=== PATIENT | male | born 2000 | race Caucasian/White ===

== ENCOUNTER 2022-08-21 06:05 | Inpatient (IN) ==
--- NOTE | 2022-08-21 06:37 | Emergency Department Note ---
Impression & Plan Suicidal ideation, Mood disorder ED Provider Note NAME: TYRONE MARION AGE: 22 SEX: M : 2000 ARRIVES VIA: Walk-In INFORMANT: Patient ED PROVIDER(S): Carlos Osorio DO CHIEF COMPLAINT: Suicidal ideations HPI: Patient is a 22-year-old male who presents to the ER who had suicidal ideations and a plan. He notes he is feeling very depressed and having suicidal thoughts. These thoughts have been present for over a year but getting worse recently. He admits to thinking about killing himself and planning to kill himself with a knife. He tried to cut his wrist to kill himself but was unsuccessful as it was not sharp enough. He denies any headache or change in vision. No chest pain or shortness of breath. No nausea, vomiting, or diarrhea. No cough or runny nose. No other exacerbating or remitting factors. His tetanus he believes is up-to-date. ROS: See above HPI for pertinent positives & negatives. A total of 10 systems reviewed and were otherwise negative. PAST MEDICAL HISTORY:See Below PAST SURGICAL HISTORY:See Below FAMILY HISTORY:See Below SOCIAL HISTORY:See Below HOME MEDICATIONS:See Below ALLERGIES:See Below VITALS:See Below PHYSICAL EXAMINATION: GENERAL: Sitting up in bed, alert, well appearing, well nourished, no distress, non-toxic EYE EXAM: normal conjunctiva. OROPHARYNX: no exudate, no erythema, lips, buccal mucosa, and tongue normal and mucous membranes are moist NECK: supple, no nuchal rigidity, no adenopathy, non-tender LUNGS: Clear to auscultation. Normal chest wall mechanics HEART: no murmurs, S1 normal and S2 normal ABDOMEN: abdomen soft, non-tender, normo-active bowel sounds, no masses, no rebound or guarding. UPPER EXTREMITIES: upper extremities are grossly normal. LOWER EXTREMITIES: No pitting edema. NEURO EXAM: Normal sensorium, cranial nerves II-XII grossly intact, normal speech, no gross weakness of arms, no gross weakness of legs. PSYCH: Admits to suicidal ideations with a plan and attempt to cut his wrist MEDICAL DECISION MAKING: Patient is a 22-year-old male who presents ER for suicidal ideations with a plan to kill himself by cutting his wrist. Blood work obtained showed no significant leukocytosis or anemia. BMP with mild hypokalemia. LFTs bilirubin was unremarkable. UA was clean. Tox was negative. Alcohol was negative. COVID- negative. Patient was seen evaluated admitted to [address] on a 201. Triage Nursing notes reviewed. Limited review of prior medical records performed Vital Signs: reviewed and remarkable for HTN Differential diagnosis: Mood disorder, infection, hypoglycemia, electrolyte abnormalities, cardiac sources, intracerebral event, toxicologic, trauma, neurologic, as well as other pathologies. ER treatment provided: See below Diagnostics interpreted by me: ECG: none Laboratory studies: As stated above and show below. Imaging studies: See below Consultation(s): none Procedures: none Critical Care: None Past Med/Surg History Social History Smoking Status: Never smoker Preferred Language: Italian Communication Ability: Effective Chorus Dancer Required: No Beliefs That Will Affect Care: None Feels Safe at Home: Yes Assistive Devices: None Results & Data (ED) Vital Signs Vital Signs - 24 hr 08/21/22 06:10 08/21/22 08:43 Temperature 36.5 C 36.9 C Temperature Source Temporal Artery Scan Oral Pulse Rate 87 Pulse Rate [Finger] 119 H Pulse Rhythm Regular Pulse Strength Normal Respiratory Rate 20 18 Respiratory Effort / Characteristics Non-Labored Spontaneous Non-Labored Respiratory Depth Normal Normal Blood Pressure 149/94 H Blood Pressure [Right Arm] 139/86 Blood Pressure Mean 112 Blood Pressure Mean [Right Arm] 103 Blood Pressure Position Sitting Pulse Oximetry 99 99 Sepsis Recent Fever Within 48 Hours No Sepsis New/Unexplained Change in Mental Status N/A Sepsis Action Taken by Nursing No Action Required Laboratory Data Result diagrams: 08/21/22 07:36 08/21/22 07:36 Lab Results 08/21/22 08/21/22 08/21/22 Range/Units 06:46 07:36 07:36 WBC 9.86 (4.8-10.8) K/ul RBC 5.09 (4.63-6.08) M/uL Hgb 15.5 (14.0-18.0) g/dl Hct 44.6 (40.1-51.0) % MCV 87.6 (80.0-100.0) fL MCH 30.5 (25.0-34.0) pg MCHC 34.8 (32.0-36.0) g/dL RDW Std Deviation 38.0 (36.4-46.3) fL RDW Coeff of Lcuas 11.8 (11.5-14.5) % Plt Count 277 (130-400) K/uL MPV 10.6 (9.4-12.4) fL Immature Gran % (Auto) 0.4 % Neut % (Auto) 85.8 % Lymph % (Auto) 10.2 % [place] % (Auto) 3.1 % Eos % (Auto) 0.1 % Baso % (Auto) 0.4 % Neut # (Auto) 8.45 H (1.4-6.5) K/uL Lymph # (Auto) 1.01 L (1.2-3.4) K/uL [place] # (Auto) 0.31 (0.24-0.82) K/uL Eos # (Auto) 0.01 (0-0.50) K/uL Baso # (Auto) 0.04 (0-0.2) K/uL Immature Gran # (Auto) 0.04 H (0.00-0.02) K/uL Sodium 137 (136-145) mmol/L Potassium 3.6 (3.5-5.1) mmol/L Chloride 100 (98-107) mmol/L Carbon Dioxide 26 (21-32) mmol/L Anion Gap 11 (3-11) BUN 19 (6-23) mg/dl Creatinine 0.87 (0.6-1.4) mg/dl Est Cr Clr Drug Dosing 147.4 ml/min Est GFR ( Amer) 143.0 ml/min Est GFR (Non-Af Amer) 123.4 ml/min BUN/Creatinine Ratio 21.8 H (10-20) Glucose 167 H (70-99(Fasting)) mg/dl Calcium 10.2 H (8.5-10.1) mg/dl Total Bilirubin 0.8 (0.2-1.0) mg/dl AST 18 (13-39) U/L ALT 16 (7-52) U/L Alkaline Phosphatase 88 (34-104) U/L Total Protein 8.3 (6.0-8.3) gm/dl Albumin 5.3 H (3.4-5.0) gm/dl Globulin 3.0 (2.5-4.0) gm/dl Albumin/Globulin Ratio 1.8 (0.9-2) TSH (0.300-4.500) uIu/ml Urine Color Urine Appearance (Clear) Urine pH (4.5-7.5) Ur Specific [place] (1.000-1.030) Urine Protein (Negative) Urine Glucose (UA) (Negative) Urine Ketones (Negative) Urine Blood (Negative) Urine Nitrite (Negative) Urine Bilirubin (Negative) Urine Urobilinogen (Negative) Ur Leukocyte Esterase (Negative) Salicylates (3.0-30) mg/dl Urine Opiates Screen (Neg) Ur Methadone, Qual (Neg) Acetaminophen (10-30) ug/ml Urine Barbiturates (Neg) Ur Phencyclidine (PCP) (Neg) U Amphetamin/Meth Scrn (Neg) MDMA (Ecstasy) Screen (Neg) U Benzodiazepines Scrn (Neg) Ur Cocaine Metabolite (Neg) U Marijuana (THC) Screen (Neg) Ethyl Alcohol mg/dL (<10.0) mg/dl SARS-CoV-2, RNA, NAAT NEGATIVE (NEGATIVE) 08/21/22 08/21/22 08/21/22 Range/Units 07:36 07:36 07:36 WBC (4.8-10.8) K/ul RBC (4.63-6.08) M/uL Hgb (14.0-18.0) g/dl Hct (40.1-51.0) % MCV (80.0-100.0) fL MCH (25.0-34.0) pg MCHC (32.0-36.0) g/dL RDW Std Deviation (36.4-46.3) fL RDW Coeff of Lucas (11.5-14.5) % Plt Count (130-400) K/uL MPV (9.4-12.4) fL Immature Gran % (Auto) % Neut % (Auto) % Lymph % (Auto) % [place] % (Auto) % Eos % (Auto) % Baso % (Auto) % Neut # (Auto) (1.4-6.5) K/uL Lymph # (Auto) (1.2-3.4) K/uL [place] # (Auto) (0.24-0.82) K/uL Eos # (Auto) (0-0.50) K/uL Baso # (Auto) (0-0.2) K/uL Immature Gran # (Auto) (0.00-0.02) K/uL Sodium (136-145) mmol/L Potassium (3.5-5.1) mmol/L Chloride (98-107) mmol/L Carbon Dioxide (21-32) mmol/L Anion Gap (3-11) BUN (6-23) mg/dl Creatinine (0.6-1.4) mg/dl Est Cr Clr Drug Dosing ml/min Est GFR ( Amer) ml/min Est GFR (Non-Af Amer) ml/min BUN/Creatinine Ratio (10-20) Glucose (70-99(Fasting)) mg/dl Calcium (8.5-10.1) mg/dl Total Bilirubin (0.2-1.0) mg/dl AST (13-39) U/L ALT (7-52) U/L Alkaline Phosphatase (34-104) U/L Total Protein (6.0-8.3) gm/dl Albumin (3.4-5.0) gm/dl Globulin (2.5-4.0) gm/dl Albumin/Globulin Ratio (0.9-2) TSH 2.067 (0.300-4.500) uIu/ml Urine Color Urine Appearance (Clear) Urine pH (4.5-7.5) Ur Specific [place] (1.000-1.030) Urine Protein (Negative) Urine Glucose (UA) (Negative) Urine Ketones (Negative) Urine Blood (Negative) Urine Nitrite (Negative) Urine Bilirubin (Negative) Urine Urobilinogen (Negative) Ur Leukocyte Esterase (Negative) Salicylates < 3.0 L (3.0-30) mg/dl Urine Opiates Screen (Neg) Ur Methadone, Qual (Neg) Acetaminophen < 3 L (10-30) ug/ml Urine Barbiturates (Neg) Ur Phencyclidine (PCP) (Neg) U Amphetamin/Meth Scrn (Neg) MDMA (Ecstasy) Screen (Neg) U Benzodiazepines Scrn (Neg) Ur Cocaine Metabolite (Neg) U Marijuana (THC) Screen (Neg) Ethyl Alcohol mg/dL < 10.0 (<10.0) mg/dl SARS-CoV-2, RNA, NAAT (NEGATIVE) 08/21/22 08/21/22 Range/Units 08:46 08:46 WBC (4.8-10.8) K/ul RBC (4.63-6.08) M/uL Hgb (14.0-18.0) g/dl Hct (40.1-51.0) % MCV (80.0-100.0) fL MCH (25.0-34.0) pg MCHC (32.0-36.0) g/dL RDW Std Deviation (36.4-46.3) fL RDW Coeff of Lucas (11.5-14.5) % Plt Count (130-400) K/uL MPV (9.4-12.4) fL Immature Gran % (Auto) % Neut % (Auto) % Lymph % (Auto) % [place] % (Auto) % Eos % (Auto) % Baso % (Auto) % Neut # (Auto) (1.4-6.5) K/uL Lymph # (Auto) (1.2-3.4) K/uL [place] # (Auto) (0.24-0.82) K/uL Eos # (Auto) (0-0.50) K/uL Baso # (Auto) (0-0.2) K/uL Immature Gran # (Auto) (0.00-0.02) K/uL Sodium (136-145) mmol/L Potassium (3.5-5.1) mmol/L Chloride (98-107) mmol/L Carbon Dioxide (21-32) mmol/L Anion Gap (3-11) BUN (6-23) mg/dl Creatinine (0.6-1.4) mg/dl Est Cr Clr Drug Dosing ml/min Est GFR ( Amer) ml/min Est GFR (Non-Af Amer) ml/min BUN/Creatinine Ratio (10-20) Glucose (70-99(Fasting)) mg/dl Calcium (8.5-10.1) mg/dl Total Bilirubin (0.2-1.0) mg/dl AST (13-39) U/L ALT (7-52) U/L Alkaline Phosphatase (34-104) U/L Total Protein (6.0-8.3) gm/dl Albumin (3.4-5.0) gm/dl Globulin (2.5-4.0) gm/dl Albumin/Globulin Ratio (0.9-2) TSH (0.300-4.500) uIu/ml Urine Color Yellow Urine Appearance Clear (Clear) Urine pH 5.5 (4.5-7.5) Ur Specific [place] 1.022 (1.000-1.030) Urine Protein Negative (Negative) Urine Glucose (UA) Trace H (Negative) Urine Ketones Trace H (Negative) Urine Blood Negative (Negative) Urine Nitrite Negative (Negative) Urine Bilirubin Negative (Negative) Urine Urobilinogen Negative (Negative) Ur Leukocyte Esterase Negative (Negative) Salicylates (3.0-30) mg/dl Urine Opiates Screen Neg (Neg) Ur Methadone, Qual Neg (Neg) Acetaminophen (10-30) ug/ml Urine Barbiturates Neg (Neg) Ur Phencyclidine (PCP) Neg (Neg) U Amphetamin/Meth Scrn Neg (Neg) MDMA (Ecstasy) Screen Neg (Neg) U Benzodiazepines Scrn Neg (Neg) Ur Cocaine Metabolite Neg (Neg) U Marijuana (THC) Screen Pos H (Neg) Ethyl Alcohol mg/dL (<10.0) mg/dl SARS-CoV-2, RNA, NAAT (NEGATIVE) Discharge Plan Visit Data Chief Complaint: Mental Health Evaluation Stated Complaint: MENTAL HEALTH EVAULATION ED Provider: Carlos Osorio Discharge Problem: Suicidal ideation, Mood disorder Patient Disposition: Admitted As Inpatient Discharge Instructions Interventions: ED Discharge Assessment Last Done: 08/21/22 11:15
[2022-08-21 08:08] LABS: Basophils # (auto) 0.04 K/uL (0-0.2); Basophils % (auto) 0.4 %; Eosinophils # (auto) 0.01 K/uL (0-0.50); Eosinophils % (auto) 0.1 %; Hematocrit (blood only) 44.6 % (40.1-51.0); Hemoglobin 15.5 g/dl (14.0-18.0); Immature Granulocytes # (auto) 0.04 K/uL (0.00-0.02); Immature Granulocytes % (auto) 0.4 %; Lymphocytes # (auto) 1.01 K/uL (1.2-3.4); Lymphocytes % (auto) 10.2 %; Mean Corpuscular Hemoglobin 30.5 pg (25.0-34.0); Mean Corpuscular Hgb Conc 34.8 g/dL (32.0-36.0); Mean Corpuscular Volume 87.6 fL (80.0-100.0); Mean Platelet Volume 10.6 fL (9.4-12.4); Monocytes # (auto) 0.31 K/uL (0.24-0.82); Monocytes % (auto) 3.1 %; Neutrophils # (auto) 8.45 K/uL (1.4-6.5); Neutrophils % (auto) 85.8 %; Platelet Count 277 K/uL (130-400); RDW Coefficient of Variation 11.8 % (11.5-14.5); Red Blood Count 5.09 M/uL (4.63-6.08); White Blood Count 9.86 K/ul (4.8-10.8)
[2022-08-21 08:26] LABS: Acetaminophen < 3 ug/ml (10-30); Salicylate < 3.0 mg/dl (3.0-30)
[2022-08-21 08:31] LABS: Albumin Globulin Ratio 1.8 (0.9-2); Albumin Level 5.3 gm/dl (3.4-5.0); BUN Creatinine Ratio 21.8 (10-20); Bilirubin,Total 0.8 mg/dl (0.2-1.0); Calcium 10.2 mg/dl (8.5-10.1); Creatinine Clr Calc Pharmacy 147.4 ml/min; Est GFR (Non-African American) 123.4 ml/min; Potassium 3.6 mmol/L (3.5-5.1); Total Protein 8.3 gm/dl (6.0-8.3)
[2022-08-21 09:08] LABS: Appearance Urine Clear (Clear); Bilirubin Urine Negative (Negative); Blood Urine Negative (Negative); Color Urine Yellow; Glucose Urine UA Trace (Negative); Ketones Urine Trace (Negative); Leukocyte Esterase Urine Negative (Negative); Nitrite Urine Negative (Negative); Protein Urine Negative (Negative); Specific Gravity Urine 1.022 (1.000-1.030); Urobilinogen Urine Negative (Negative); pH Urine 5.5 (4.5-7.5)
[2022-08-21 10:04] LABS: Amphetamines+Metham, Urine Neg (Neg); Barbiturates, Urine Neg (Neg); Benzodiazepine, Urine Neg (Neg); Cocaine, Urine Neg (Neg); MDMA (Ecstacy), Urine Neg (Neg); Methadone, Urine Neg (Neg); Opiate, Urine Neg (Neg); Phencyclidine, Urine Neg (Neg)
--- NOTE | 2022-08-21 14:43 | History & Physical ---
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 Diagnostically consistent with MDD with anxious distress and binge drinking though at this point unclear if he meets criteria for alcohol use disorder. The patient is deemed unstable and requires psychiatric hospitalization for diagnostic clarification, safety and stabilization, medication management and development of further coping skills. The patient's audit score suggests potentially problematic substance use. Brief intervention was offered and accepted. Intervention was greater than 5 minutes in length and included assessing readiness to quit, advice on how to reduce or abstain and to set a specific goal for this hospitalization. 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 The patient is in contemplative stage with regards to transtheoretical model of change and will to reduce his alcohol intake. The patient is advised to decrease consumption due to depressant effects and risk of interaction with prescription medications. The patient agreed to reduce his use and will be provided with recovery materials to continue to educate self on how to cope with their condition without using substances. Discussed medication treatment options in detail including SSRIs, trazodone. Discussed risks, benefits and alternatives. Patient would like to start and consented to sertraline for MDD and anxiety and trazodone for insomnia. Reviewed side effects including but not limited to: GI, VERDUGO, sexual side effects, and c ounseled on black box warning of potential for emergence of or increased SI and need to let staff know should this occur or should they feel unsafe. Also discussed importance of seeking emergency care following discharge if this side effect occurs in the future. (1) Major depressive disorder, single episode with anxious distress: (2) Suicide attempt by cutting of wrist: (3) Insomnia: Plan 08/21/22: The [facility] on q15 min checks (behavioral with suicide precautions) for safety. The patient will participate in group, recreational, and milieu therapies and will be offered additional individual and family sessions as clinically appropriate. -sertraline 25mg qd -trazodone 50mg qhs prn Inventory Assets Strengths: supportive relationships, willing to get treatment, resilient, driven/motivated, kind Needs: safety and stabilization, medication adjustment, additional coping skills, increased outpatient services Suicide Risk Level Suicide Risk Level: High-Moderate (q15 min suicide checks) Suicide Risk Level Comments: High-Moderate due to severe depression with suicide attempt prior to admission but feels safe in the hospital, able to safety contract and agrees to let nursing/staff know should they develop plan, intent or feel unable to remain safe. Risk Factors Assessment Male: Yes : Yes Do You Have Access To A Gun?: No Health Problems: No Mental Health Diagnoses: Yes Substance Use Disorders: Yes Previous Attempt: No Family History of Suicide: No Previous Psychiatric Hospitalization: No Hopelessness: Yes Protective Factors Assessment Employed: No Stable Relationships: Yes Supportive Family: Yes Psychiatric History Identifying Data TYRONE MARION is a 22-year-old man and [employer] student who currently lives in off- campus in a house with roommates, has no formal psychiatric history, and was ad mitted on 08/21/22 10:58 on a 201 voluntary commitment for depression and suicide attempt via cutting. Chief Complaint "It's been a lot of different things". 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 He states he's been depressed for awhile but did not want to burden others so he has been dealing with it on his own and felt like he should be able to manage on his own. Yesterday he decided to act on his thoughts of suicide and [place], ditched his cell phone so he wouldn't burden others/his location be traceable and then cut himself with a knife around 3 or 4pm but it was not sharp enough and the cuts were not bleeding very much. At this point he tried to think of other ways "I could quickly do it" and considered jumping from scaffolding on a construction site but changed his mind. He remained outside all night, [place]. He was very cold but also ambivalent about potentially dying in his sleep. This morning, "something told me not" in terms of attempting suicide and so he returned to his apartment around 6am and his sister and brother were there and brought him to the hospital. While he was in the [facility] yesterday he missed a large [employer] event which concerned his friends who alerted his sister who posted that he was missing on facebook which resulted in significant media exposure and resulted in police and comm unity search efforts yesterday. This adds to his current stress as he feels guilt and shame about this and wonders how others will view him after his attempt and disappearance. He endorses current depressive symptoms including anhedonia, tearfulness, self- guilt, hopelessness, helplessness, decreased energy slightly, decreased motivation-still going to classes but so much harder, decreased concentration, decreased sleep about 5 or 6 hours a night with difficulty falling asleep due to racing thoughts, decreased appetite. He endorse anxiety symptoms including excessive worry, fatigue, irritability, insomnia, decreased concentration, and no panic attacks. Further recent history reviewed and confirmed as documented in accountant manager note from 08/21/22: "Tyrone was brought into ED by his family for a mental health evaluation. Tyrone was reported missing by his family and was searched for throughout the night by police who found his phone in the middle of the road. Officer Mauro present to speak with patient. Tyrone stated he has been struggling in "stuff" for approx. 5 years. He stated he tried to "deal with it on my own" and stated he never told anyone about it. Tyrone stated he struggled with being alone and always felt he needed to be around people "to distract me." Tyrone had difficulty verbalizing how he was feeling when asked questions. Tyrone has cut on wrist that he stated was an attempt to harm himself. Tyrone stated what he used to cut was not sharp enough. Dr. Osorio asked patient if cut was to harm or kill himself. Tyrone replied "the later." Tyrone stated he does not want to talk about things in front of his family and he verbalized he would like to talk to them about it in his own time. Physician asked patient if he would be willing to stay in the hospital for help and he replied "I think I need to." Met with patient bedside to complete mental health evaluation. Patient presents sad, tearful at times and cooperative in answering all questions asked of him. Two nights ago, patient was up late and was "stuck in my head" about all going on and of the past. The next morning, patient left his apartment around 10am and walked to far [facility]. Along the way, patient threw his cell phone away as not to be bothered or tracked down by anyone. Patient walked around in the [place] for awhile and then attempted to cut his wrist in an attempt to end his life. Patient reports the knife was not sharp enough and was "not successful" in what he intended to do. Patient then began wandering around the [place] again, getting lost and then came upon a construction site. Patient then contemplated jumping off the scaffolding, but chose not to. Patient then thought it best to return to his apartment around 6am this morning. Patient then came to the ED for further evaluation and treatment. Patient began having vague/passive suicidal ideations, reporting over the past two weeks have worsened. Patient has always struggled with depression, but has "always pushed thought them." Although patient has a lot of support, he does not want to burden anyone else with his problems. Patient identifies stressors as his Dad dying when he was 15y/o, his Mom has Laura's Disease and is deteriorating, he is the middle person between his siblings of a disagreement and he was recently accused of academic integrity. Patient reports depressive symptoms as feelings of helpless/hopelessness, self-devaluation, guilt, loss of daily functioning, lack of motivation, anhedonia, poor concentration, decrease in ADL's, appetite and quality of sleep. Patient describes moderate anxiety most days with symptoms of sweating and restlessness." He is not currently prescribed any psychiatric medications. Psychiatric ROS notable for no current nor history of symptoms of imelda, psychosis, PTSD, OCD nor eating disorder. Past Psychiatric History Current Psychiatric Diagnosis: MDD Outpatient Services: none Previous Psych Admissions: n/a Do You Have Access To A Gun?: No History of Previous Suicide Attempt: No Past Medication Trials: none Past Head Trauma/Neuro History History of Concussion/Seizure: No Allergies Allergy/AdvReac Type Severity Reaction Status Date / Time cat dander Allergy Verified 08/21/22 15:05 grass pollen Allergy Verified 08/21/22 15:05 Family History Family History of: Alcoholism/Drug Abuse (father) and Other-List under Comment (Laura's disease) Alcohol History Hx of Alcohol Use Over the Past 12 Months: Yes AUDIT Total Score: 15 drinks on the weekends, typically drinks about 6 beers, usually 1-2 beers every hour, doesn't feel he drinks to excess. Denies any legal, academic, medical or social consequences from his use. Smoking Use Have You Smoked or Used Tobacco Products in the Last 30 Days: No Smoking Status: Never smoker Substance History Hx of Prescription Med Misuse Over the Past 12 Months: No Hx of Over the Counter Med Misuse Over the Past 12 Months: No Hx of Inhalent Misuse Over the Past 12 Months: No Hx of Organic Substance Use Over the Past 12 Months: Yes (MJ 3-5 times weekly) Hx of Illegal Substances/Street Drug Use Over Past 12 Months: No Problems as a Result of Past Substance Use: None Identified Marijuana in the evenings he likes that it relaxes him and decreases worries/thinking Personal History Living Arrangements: Home (has 4 roommates) Childhood: [place] up [place] [facility] near [place], [place]. His father of cancer when he was 15. His mother has Monetta's Disease. He has an older sister and older br other. Highest Grade Completed: Some College (current [employer] student) Employment Status: Student (senior in accounting ) Marital Status: Single Number Of Children: 0 Beliefs That Will Affect Care: None Current Legal Problems: No Hx Legal Problems: No Hx Traumatic Life Events: Yes Additional Comments: Has a job lined up for after graduation. Patient History Social History Smoking Status: Never smoker Preferred Language: Armenian Communication Ability: Effective Alcoholic Counselor Required: No Beliefs That Will Affect Care: None Feels Safe at Home: Yes Assistive Devices: None Review of Systems Review of Systems: All systems reviewed & are unremarkable except as noted in HPI & below (left wrist lacerations, splinter in left hand) Physical Exam Psychiatric: Orientation: alert and oriented x 3 Apperance: appropriately dressed and appropriately groomed Eye Contact: good eye contact Motor Behavior: no abnormal motor movements Speech: normal rate/rhythm/volume of speech Affect: + depressed affect and + anxious affect Mood: + depressed mood and + anxious mood Thought Process: goal directed thought process Thought Content: reality based without delusions Suicidal Thoughts: denies suicidal thoughts (but attempt prior to admission, last SI was last evening), denies suicidal plan and denies suicidal intent Homicidal Thoughts: denies homicidal thoughts Hallucinations: no auditory hallucinations and no visual hallucinations Cognition: recent memory grossly intact, remote memory grossly intact, attention grossly intact and language grossly intact Estimated Intelligence: consistent with education level Insight: + fair insight Judgement: + limited judgement Vital Signs (Past 24 Hours): Last Vital Signs Temp 36.9 C 08/21/22 08:43 Pulse 84 08/21/22 11:52 Resp 16 08/21/22 11:52 BP 135/80 08/21/22 11:52 Pulse Ox 99 08/21/22 08:43 O2 Del Method 08/21/22 11:15 Exam Statement: A physical exam was performed in the ED by Dr. Osorio for the purposes of medical clearance. I accept that physical as correct and adequate for the purposes of the inpatient physical exam. Results & Data ([facility]) Laboratory Results Laboratory Results - last 24 hr 08/21/22 08/21/22 08/21/22 06:46 07:36 07:36 WBC 9.86 RBC 5.09 Hgb 15.5 Hct 44.6 MCV 87.6 MCH 30.5 MCHC 34.8 RDW Std Deviation 38.0 RDW Coeff of Lucas 11.8 Plt Count 277 MPV 10.6 Immature Gran % (Auto) 0.4 Neut % (Auto) 85.8 Lymph % (Auto) 10.2 [place] % (Auto) 3.1 Eos % (Auto) 0.1 Baso % (Auto) 0.4 Neut # (Auto) 8.45 H Lymph # (Auto) 1.01 L [place] # (Auto) 0.31 Eos # (Auto) 0.01 Baso # (Auto) 0.04 Immature Gran # (Auto) 0.04 H Sodium 137 Potassium 3.6 Chloride 100 Carbon Dioxide 26 Anion Gap 11 BUN 19 Creatinine 0.87 Est Cr Clr Drug Dosing 147.4 Est GFR ( Amer) 143.0 Est GFR (Non-Af Amer) 123.4 BUN/Creatinine Ratio 21.8 H Glucose 167 H Calcium 10.2 H Total Bilirubin 0.8 AST 18 ALT 16 Alkaline Phosphatase 88 Total Protein 8.3 Albumin 5.3 H Globulin 3.0 Albumin/Globulin Ratio 1.8 TSH Urine Color Urine Appearance Urine pH Ur Specific [place] Urine Protein Urine Glucose (UA) Urine Ketones Urine Blood Urine Nitrite Urine Bilirubin Urine Urobilinogen Ur Leukocyte Esterase Salicylates Urine Opiates Screen Ur Methadone, Qual Acetaminophen Urine Barbiturates Ur Phencyclidine (PCP) U Amphetamin/Meth Scrn MDMA (Ecstasy) Screen U Benzodiazepines Scrn Ur Cocaine Metabolite U Marijuana (THC) Screen U Marijuana THC Carboxy Drug Screen Comment Ethyl Alcohol mg/dL SARS-CoV-2, RNA, NAAT NEGATIVE 08/21/22 08/21/22 08/21/22 07:36 07:36 07:36 WBC RBC Hgb Hct MCV MCH MCHC RDW Std Deviation RDW Coeff of Lucas Plt Count MPV Immature Gran % (Auto) Neut % (Auto) Lymph % (Auto) [place] % (Auto) Eos % (Auto) Baso % (Auto) Neut # (Auto) Lymph # (Auto) [place] # (Auto) Eos # (Auto) Baso # (Auto) Immature Gran # (Auto) Sodium Potassium Chloride Carbon Dioxide Anion Gap BUN Creatinine Est Cr Clr Drug Dosing Est GFR ( Amer) Est GFR (Non-Af Amer) BUN/Creatinine Ratio Glucose Calcium Total Bilirubin AST ALT Alkaline Phosphatase Total Protein Albumin Globulin Albumin/Globulin Ratio TSH 2.067 Urine Color Urine Appearance Urine pH Ur Specific [place] Urine Protein Urine Glucose (UA) Urine Ketones Urine Blood Urine Nitrite Urine Bilirubin Urine Urobilinogen Ur Leukocyte Esterase Salicylates < 3.0 L Urine Opiates Screen Ur Methadone, Qual Acetaminophen < 3 L Urine Barbiturates Ur Phencyclidine (PCP) U Amphetamin/Meth Scrn MDMA (Ecstasy) Screen U Benzodiazepines Scrn Ur Cocaine Metabolite U Marijuana (THC) Screen U Marijuana THC Carboxy Drug Screen Comment Ethyl Alcohol mg/dL < 10.0 SARS-CoV-2, RNA, NAAT 08/21/22 08/21/22 08/21/22 08:46 08:46 08:46 WBC RBC Hgb Hct MCV MCH MCHC RDW Std Deviation RDW Coeff of Lucas Plt Count MPV Immature Gran % (Auto) Neut % (Auto) Lymph % (Auto) [place] % (Auto) Eos % (Auto) Baso % (Auto) Neut # (Auto) Lymph # (Auto) [place] # (Auto) Eos # (Auto) Baso # (Auto) Immature Gran # (Auto) Sodium Potassium Chloride Carbon Dioxide Anion Gap BUN Creatinine Est Cr Clr Drug Dosing Est GFR ( Amer) Est GFR (Non-Af Amer) BUN/Creatinine Ratio Glucose Calcium Total Bilirubin AST ALT Alkaline Phosphatase Total Protein Albumin Globulin Albumin/Globulin Ratio TSH Urine Color Yellow Urine Appearance Clear Urine pH 5.5 Ur Specific [place] 1.022 Urine Protein Negative Urine Glucose (UA) Trace H Urine Ketones Trace H Urine Blood Negative Urine Nitrite Negative Urine Bilirubin Negative Urine Urobilinogen Negative Ur Leukocyte Esterase Negative Salicylates Urine Opiates Screen Neg Ur Methadone, Qual Neg Acetaminophen Urine Barbiturates Neg Ur Phencyclidine (PCP) Neg U Amphetamin/Meth Scrn Neg MDMA (Ecstasy) Screen Neg U Benzodiazepines Scrn Neg Ur Cocaine Metabolite Neg U Marijuana (THC) Screen Pos H U Marijuana THC Carboxy Pending Drug Screen Comment Pending Ethyl Alcohol mg/dL SARS-CoV-2, RNA, NAAT
[2022-08-21] MEDS ORDERED: traZODone HCL 50 MG TAB PO PRN (15:40)
[2022-08-22] MEDS ORDERED: ALUMINUM/MAGNESIUM SUSP 30 ML UDC PO PRN (08:11)
[2022-08-22] MEDS ORDERED: MAGNESIUM HYDROXIDE SUSP 30 ML UDC PO PRN (08:11)
[2022-08-22] MEDS ORDERED: SODIUM CHLORIDE 0.65% NA SOLN 45 ML (OCEAN) PRN (08:11)
[2022-08-22] MEDS ORDERED: hydrOXYzine HCl 25 MG TAB PO PRN ×2 (08:11)
[2022-08-22] MEDS ORDERED: ACETAMINOPHEN 325 MG TAB PO PRN (08:11)
[2022-08-22] MEDS ORDERED: BISMUTH SUBSALICYLATE LIQD 236 ML PO PRN (08:11)
[2022-08-22] MEDS: SERTRALINE HCL 50 MG TABLET PO SCH (08:47)
--- NOTE | 2022-08-22 08:53 | Psychiatric Progress Note ---
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 Diagnostically consistent with MDD with anxious distress and binge drinking though at this point unclear if he meets criteria for alcohol use disorder. The patient is deemed unstable and requires psychiatric hospitalization for diagnostic clarification, safety and stabilization, medication management and development of further coping skills. 08/22/22: Ongoing depression and anxiety following serious suicide attempt. Tolerating initiation of sertraline. (1) Major depressive disorder, single episode with anxious distress: (2) Suicide attempt by cutting of wrist: (3) Insomnia: Plan 08/22/22: Continue with sertraline 25mg qd and current tx plan. 08/21/22: The patient was admitted to the [facility] on q15 min checks (behavioral with suicide precautions) for safety. The patient will participate in group, recreational, and milieu therapies and will be offered additional individual and family sessions as clinically appropriate. -sertraline 25mg qd -trazodone 50mg qhs prn Inventory Assets Strengths: supportive relationships, willing to get treatment, resilient, driven/motivated, kind Needs: safety and stabilization, medication adjustment, additional coping skills, inc reased outpatient services Suicide Risk Level Suicide Risk Level: High-Moderate (q15 min suicide checks) Suicide Risk Level Comments: High-Moderate due to severe depression with suicide attempt prior to admission but feels safe in the hospital, able to safety contract and agrees to let nursing/staff know should they develop plan, intent or feel unable to remain safe. 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 Chief Complaint "I'm still trying to process everything". Review of Systems Sleep Information Total Hours of Sleep: 6.5 Meal Information Percent Meal Consumed - Lunch: 100 Percent Meal Consumed - Dinner: 100 Subjective Subjective Patient was seen & assessed and interval progress reviewed with treatment team nursing and social work. Was able to fall asleep last night and slept ok. Today remains depressed and anxious especially about how others will view him/think of him after publicity of his disappearance prior to coming to the hospital. His sister dropped off some snacks for him. Benadryl cream helped with irritation from cuts on his wrist. No side effects from first dose of sertraline. Physical Exam Psychiatric Orientation: alert and oriented x 3 Apperance: appropriately dressed and appropriately groomed Eye Contact: good eye contact Motor Behavior: no abnormal motor movements Speech: normal rate/rhythm/volume of speech Affect: + anxious affect; + mood not congruent with affect Mood: + depressed mood and + anxious mood Thought Process: goal directed thought process Thought Content: reality based without delusions Suicidal Thoughts: denies suicidal thoughts (but attempt prior to admission), denies suicidal plan and denies suicidal intent Homicidal Thoughts: denies homicidal thoughts Hallucinations: no auditory hallucinations and no visual hallucinations Cognition: recent memory grossly intact, remote memory grossly intact, attention grossly intact and language grossly intact Estimated Intelligence: consistent with education level Insight: + fair insight Judgement: + fair judgement Vital Signs (Past 24 Hours) Last Vital Signs Temp 36.6 C 08/22/22 06:19 Pulse 71 08/22/22 06:22 Resp 16 08/22/22 06:19 BP 114/71 08/22/22 06:22 Pulse Ox 99 08/21/22 08:43 O2 Del Method 08/21/22 11:15 Results & Data ([facility]) Laboratory Results Laboratory Results - last 24 hr 08/21/22 08/21/22 08/21/22 08:46 08:46 08:46 Urine Color Yellow Urine Appearance Clear Urine pH 5.5 Ur Specific [place] 1.022 Urine Protein Negative Urine Glucose (UA) Trace H Urine Ketones Trace H Urine Blood Negative Urine Nitrite Negative Urine Bilirubin Negative Urine Urobilinogen Negative Ur Leukocyte Esterase Negative Urine Opiates Screen Neg Ur Methadone, Qual Neg Urine Barbiturates Neg Ur Phencyclidine (PCP) Neg U Amphetamin/Meth Scrn Neg MDMA (Ecstasy) Screen Neg U Benzodiazepines Scrn Neg Ur Cocaine Metabolite Neg U Marijuana (THC) Screen Pos H U Marijuana THC Carboxy Pending Drug Screen Comment Pending Current Inpatient Medications Current Inpatient Medications: Current Inpatient Medications Acetaminophen (Acetaminophen 325 Mg Tab) 650 mg PO Q4H PRN PRN Reason: Headache or Minor Fever Stop: 09/21/22 08:10 Al Hydrox/Mg Hydrox/Simethicone (Aluminum/Magnesium Susp 30 Ml Udc) 30 ml PO Q4H PRN PRN Reason: GI Upset Stop: 09/21/22 08:10 Bismuth Subsalicylate (Bismuth Subsalicylate Liqd 236 Ml) 15 ml PO PRN PRN PRN Reason: Loose Stool Stop: 09/21/22 08:10 Hydroxyzine HCl (Hydroxyzine Hcl 25 Mg Tab) 50 mg PO HSZ PRN PRN Reason: Insomnia Stop: 09/21/22 08:10 Hydroxyzine HCl (Hydroxyzine Hcl 25 Mg Tab) 25 mg PO Q4H PRN PRN Reason: Anxiety Stop: 09/21/22 08:10 Magnesium Hydroxide (Magnesium Hydroxide Susp 30 Ml Udc) 30 ml PO DAILY PRN PRN Reason: Constipation Stop: 09/21/22 08:10 Sertraline HCl (Sertraline Hcl 50 Mg Tablet) 25 mg PO QAM PATRICE Stop: 09/21/22 08:59 Last Admin: 08/22/22 08:47 Dose: 25 mg Sodium Chloride (Sodium Chloride 0.65% Na Soln 45 Ml (Tift)) 1 - 2 sprays NA PRN PRN PRN Reason: Nasal Dryness/Congestion Stop: 09/21/22 08:10 Trazodone HCl (Trazodone Hcl 50 Mg Tab) 50 mg PO HS PRN PRN Reason: Insomnia Stop: 09/20/22 21:59 Zinc Acetate/Diphenhydramine (Diphenhydramine 2%/Zinc 0.1% Cream 28gm Tube) 1 appln EXT BID PRN PRN Reason: itching/irritation Stop: 09/20/22 15:39 Last Admin: 08/21/22 22:12 Dose: 1 appln
[2022-08-23] MEDS: SERTRALINE HCL 50 MG TABLET PO SCH (08:43)
[2022-08-23 10:22] LABS: Marijuana Quant, GCMS Urine 195 ng/mL (<5)
--- NOTE | 2022-08-23 11:39 | Psychiatric Progress Note ---
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 Diagnostically consistent with MDD with anxious distress and binge drinking though at this point unclear if he meets criteria for alcohol use disorder. The patient is deemed unstable and requires psychiatric hospitalization for diagnostic clarification, safety and stabilization, medication management and development of further coping skills. 08/23/22: Ongoing depression and anxiety following serious suicide attempt with stable progression. Tolerating initiation of sertraline, will increase to 50mg to get to effective dose which he consents to. Prefers to try Vistaril for insomnia. (1) Major depressive disorder, single episode with anxious distress: (2) Suicide attempt by cutting of wrist: (3) Insomnia: Plan 08/23/22: Increase sertraline to 50mg qd. Discontinue trazodone. Vistaril 50mg qhs prn for insomnia. 08/22/22: Continue with sertraline 25mg qd and current tx plan. 08/21/22: The patient was admitted to the [facility] ([facility] mental health unit) on q15 min checks (behavioral with suicide precautions) for safety. The patient will participate in group, recreational, and milieu therapies and will be offered additional individual and family sessions as clinically appropriate. -sertraline 25mg qd -trazodone 50mg qhs prn Inventory Assets Strengths: supportive relationships, willing to get treatment, resilient, driven/motivated, kind Needs: safety and stabilization, medication adjustment, additional coping skills, increased outpatient services Suicide Risk Level Suicide Risk Level: High-Moderate (q15 min suicide checks) Suicide Risk Level Comments: High-Moderate due to severe depression with suicide attempt prior to admission but feels safe in the hospital, able to safety contract and agrees to let nursing/staff know should they develop plan, intent or feel unable to remain safe. 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 Chief Complaint "I worry what they'll think of me". Review of Systems Sleep Information Total Hours of Sleep: 7 Meal Information Percent Meal Consumed - Breakfast: 100 Percent Meal Consumed - Lunch: 100 Percent Meal Consumed - Dinner: 100 Subjective Subjective Patient was seen & assessed and interval progress reviewed with treatment team nursing and social work. States his mood is "a little better than yesterday". No side effects from sertraline. Had some grogginess from trazodone and didn't find it that helpful for falling asleep so he'd prefer to stop this. Continues to have depression and anxiety, especially about how peers will perceive him after his disappearance/attempt. Processed this using CBT strategies for challenging cognitive distortions and processed benefits of returning to school vs taking a break from school. He wants to return to school after hospitalization as he feels it is a very supportive environment. Has been talking to his roommate/close friend and has been more open about struggles prior to attempt and how he's doing now. Discussed ways he can talk with friends about how he wants to be treated/what will feel most helpful and supportive from them (i.e. distraction, being available if he reaches out, getting back to doing normal activities). Physical Exam Psychiatric Orientation: alert and oriented x 3 Apperance: appropriately dressed and appropriately groomed Eye Contact: good eye contact Motor Behavior: no abnormal motor movements Speech: normal rate/rhythm/volume of speech Affect: + anxious affect Mood: + depressed mood and + anxious mood Thought Process: goal directed thought process Thought Content: reality based without delusions Suicidal Thoughts: denies suicidal thoughts (but attempt prior to admission), denies suicidal plan and denies suicidal intent Homicidal Thoughts: denies homicidal thoughts Hallucinations: no auditory hallucinations and no visual hallucinations Cognition: recent memory grossly intact, remote memory grossly intact, attention grossly intact and language grossly intact Estimated Intelligence: consistent with education level Insight: + fair insight Judgement: + fair judgement Vital Signs (Past 24 Hours) Last Vital Signs Temp 36.4 C L 08/23/22 06:16 Pulse 84 08/23/22 06:17 Resp 16 08/23/22 06:16 BP 111/65 08/23/22 06:17 Pulse Ox 99 08/21/22 08:43 O2 Del Method 08/21/22 11:15 Results & Data ([facility]) Laboratory Results Laboratory Results - last 24 hr 08/21/22 08:46 U Marijuana THC Carboxy 195 H Drug Screen Comment SEE NOTE Current Inpatient Medications Current Inpatient Medications: Current Inpatient Medications Acetaminophen (Acetaminophen 325 Mg Tab) 650 mg PO Q4H PRN PRN Reason: Headache or Minor Fever Stop: 09/21/22 08:10 Al Hydrox/Mg Hydrox/Simethicone (Aluminum/Magnesium Susp 30 Ml Udc) 30 ml PO Q4H PRN PRN Reason: GI Upset Stop: 09/21/22 08:10 Bismuth Subsalicylate (Bismuth Subsalicylate Liqd 236 Ml) 15 ml PO PRN PRN PRN Reason: Loose Stool Stop: 09/21/22 08:10 Hydroxyzine HCl (Hydroxyzine Hcl 25 Mg Tab) 50 mg PO HSZ PRN PRN Reason: Insomnia Stop: 09/21/22 08:10 Hydroxyzine HCl (Hydroxyzine Hcl 25 Mg Tab) 25 mg PO Q4H PRN PRN Reason: Anxiety Stop: 09/21/22 08:10 Magnesium Hydroxide (Magnesium Hydroxide Susp 30 Ml Udc) 30 ml PO DAILY PRN PRN Reason: Constipation Stop: 09/21/22 08:10 Sertraline HCl (Sertraline Hcl 50 Mg Tablet) 25 mg PO QAM PATRICE Stop: 09/21/22 08:59 Last Admin: 08/23/22 08:43 Dose: 25 mg Sodium Chloride (Sodium Chloride 0.65% Na Soln 45 Ml ([place])) 1 - 2 sprays NA PRN PRN PRN Reason: Nasal Dryness/Congestion Stop: 09/21/22 08:10 Trazodone HCl (Trazodone Hcl 50 Mg Tab) 50 mg PO HS PRN PRN Reason: Insomnia Stop: 09/20/22 21:59 Last Admin: 08/22/22 23:04 Dose: 50 mg Zinc Acetate/Diphenhydramine (Diphenhydramine 2%/Zinc 0.1% Cream 28gm Tube) 1 appln EXT BID PRN PRN Reason: itching/irritation Stop: 09/20/22 15:39 Last Admin: 08/21/22 22:12 Dose: 1 appln
[2022-08-24] MEDS: SERTRALINE HCL 50 MG TABLET PO SCH (08:57)
--- NOTE | 2022-08-24 11:59 | Psychiatric Progress Note ---
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 Diagnostically consistent with MDD with anxious distress and binge drinking though at this point unclear if he meets criteria for alcohol use disorder. The patient is deemed unstable and requires psychiatric hospitalization for diagnostic clarification, safety and stabilization, medication management and development of further coping skills. 08/24/22: Continues to be depressed with increased anxiety and sadness today with some guilt and indecision related to family meeting and beginning to think about next steps after hospitalization following serious suicide attempt. Tolerating higher dose of sertraline today. (1) Major depressive disorder, single episode with anxious distress: (2) Suicide attempt by cutting of wrist: (3) Insomnia: Plan 08/24/22: Continue with current medications and tx plan. Family meeting held. 08/23/22: Increase sertraline to 50mg qd. Discontinue trazodone. Vistaril 50mg qhs prn for insomnia. 08/22/22: Continue with sertraline 25mg qd and current tx plan. 08/21/22: The patient was admitted to the [facility] ([facility]) on q15 min checks (behavioral with suicide precautions) for safety. The patient will participate in group, recreational, and milieu therapies and will be offered additional individual and family sessions as clinically appropriate. -sertraline 25mg qd -trazodone 50mg qhs prn Inventory Assets Strengths: supportive relationships, willing to get treatment, resilient, driven/motivated, kind Needs: safety and stabilization, medication adjustment, additional coping skills, increased outpatient services Suicide Risk Level Suicide Risk Level: High-Moderate (q15 min suicide checks) Suicide Risk Level Comments: High-Moderate due to severe depression with suicide attempt prior to admission but feels safe in the hospital, able to safety contract and agrees to let nursing/staff know should they develop plan, intent or feel unable to remain safe. 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 Chief Complaint "I'm been more sad today". Review of Systems Sleep Information Total Hours of Sleep: 6 Meal Information Percent Meal Consumed - Breakfast: 80 Percent Meal Consumed - Lunch: 100 Percent Meal Consumed - Dinner: 100 Subjective Subjective Patient was seen & assessed and interval progress reviewed with treatment team nursing and social work. More depressed and sad today with ongoing anxiety related to missing obligations, guilt of how his attempt has lead others to take on different responsibilities for [employer] and concerns that he is "letting people down". He also notes he's "really nervous" about what he'll find on his cellphone regarding messages from friends and on social media from when he had gone missing to act on his suicidal thoughts. Processed decisions he's strug gling to make regarding most supportive and safest environment once he is stable enough for discharge from inpatient setting. He's unsure where he will go and what would be best. Feels quite overwhelmed by this decision even after extended family meeting processing this and considering options.No side effects from sertraline. Physical Exam Psychiatric Orientation: alert and oriented x 3 Apperance: appropriately dressed and appropriately groomed Eye Contact: good eye contact Motor Behavior: no abnormal motor movements Speech: normal rate/rhythm/volume of speech Affect: + depressed affect and + anxious affect Mood: + depressed mood and + anxious mood Thought Process: goal directed thought process Thought Content: reality based without delusions Suicidal Thoughts: denies suicidal thoughts (but attempt prior to admission), denies suicidal plan and denies suicidal intent Homicidal Thoughts: denies homicidal thoughts Hallucinations: no auditory hallucinations and no visual hallucinations Cognition: recent memory grossly intact, remote memory grossly intact, attention grossly intact and language grossly intact Estimated Intelligence: consistent with education level Insight: + fair insight Judgement: + limited judgement Vital Signs (Past 24 Hours) Last Vital Signs Temp 36.6 C 08/24/22 06:00 Pulse 70 08/24/22 06:12 Resp 18 08/24/22 06:00 BP 105/64 08/24/22 06:12 Pulse Ox 99 08/21/22 08:43 O2 Del Method 08/21/22 11:15 Results & Data ([facility]) Current Inpatient Medications Current Inpatient Medications: Current Inpatient Medications Acetaminophen (Acetaminophen 325 Mg Tab) 650 mg PO Q4H PRN PRN Reason: Headache or Minor Fever Stop: 09/21/22 08:10 Al Hydrox/Mg Hydrox/Simethicone (Aluminum/Magnesium Susp 30 Ml Udc) 30 ml PO Q4H PRN PRN Reason: GI Upset Stop: 09/21/22 08:10 Bismuth Subsalicylate (Bismuth Subsalicylate Liqd 236 Ml) 15 ml PO PRN PRN PRN Reason: Loose Stool Stop: 09/21/22 08:10 Hydroxyzine HCl (Hydroxyzine Hcl 25 Mg Tab) 50 mg PO HSZ PRN PRN Reason: Insomnia Stop: 09/21/22 08:10 Hydroxyzine HCl (Hydroxyzine Hcl 25 Mg Tab) 25 mg PO Q4H PRN PRN Reason: Anxiety Stop: 09/21/22 08:10 Magnesium Hydroxide (Magnesium Hydroxide Susp 30 Ml Udc) 30 ml PO DAILY PRN PRN Reason: Constipation Stop: 09/21/22 08:10 Sertraline HCl (Sertraline Hcl 50 Mg Tablet) 50 mg PO QAM PATRICE Stop: 09/23/22 08:59 Last Admin: 08/24/22 08:57 Dose: 50 mg Sodium Chloride (Sodium Chloride 0.65% Na Soln 45 Ml ([place])) 1 - 2 sprays NA PRN PRN PRN Reason: Nasal Dryness/Congestion Stop: 09/21/22 08:10 Zinc Acetate/Diphenhydramine (Diphenhydramine 2%/Zinc 0.1% Cream 28gm Tube) 1 appln EXT BID PRN PRN Reason: itching/irritation Stop: 09/20/22 15:39 Last Admin: 08/21/22 22:12 Dose: 1 appln
[2022-08-25] MEDS: SERTRALINE HCL 50 MG TABLET PO SCH (08:35)
--- NOTE | 2022-08-25 16:56 | Psychiatric Progress Note ---
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 Diagnostically consistent with MDD with anxious distress and binge drinking though at this point unclear if he meets criteria for alcohol use disorder. The patient is deemed unstable and requires psychiatric hospitalization for diagnostic clarification, safety and stabilization, medication management and development of further coping skills. 08/25/22: Continues to be depressed with anxiety but improving a bit today. Tolerating higher dose of sertraline. Less sadness today. Working on establishing outpatient services. (1) Major depressive disorder, single episode with anxious distress: (2) Suicide attempt by cutting of wrist: (3) Insomnia: Plan 08/25/22: Continue with current medications and treatment plan. Working on establishment of outpatient resources. 08/24/22: Continue with current medications and tx plan. Family meeting held. 08/23/22: Increase sertraline to 50mg qd. Discontinue trazodone. Vistaril 50mg qhs prn for insomnia. 08/22/22: Continue with sertraline 25mg qd and current tx plan. 08/21/22: The patient was admitted to the [facility] ([facility] mental health unit) on q15 min checks (behavioral with suicide precautions) for safety. The patient will participate in group, recreational, and milieu therapies and will be offered additional individual and family sessions as clinically appropriate. -sertraline 25mg qd -trazodone 50mg qhs prn Inventory Assets Strengths: supportive relationships, willing to get treatment, resilient, driven/motivated, kind Needs: safety and stabilization, medication adjustment, additional coping skills, increased outpatient services Suicide Risk Level Suicide Risk Level: High-Moderate (q15 min suicide checks) Suicide Risk Level Comments: High-Moderate due to severe depression with suicide attempt prior to admission but feels safe in the hospital, able to safety contract and agrees to let nursing/staff know should they develop plan, intent or feel unable to remain safe. 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 Chief Complaint "This is the first day I didn't wake up stressing about everything". Review of Systems Sleep Information Total Hours of Sleep: 7 Meal Information Percent Meal Consumed - Breakfast: 100 Percent Meal Consumed - Lunch: 100 Percent Meal Consumed - Dinner: 100 Subjective Subjective Patient was seen & assessed and interval progress reviewed with treatment team nursing and social work. Reports his mood is a bit better today and anxiety slightly less his he feels like this is the first time he has had in a while where he is not "stressing about stuff". He remains a bit overwhelmed about the prospect of all of the potential stressors once he returns home such as his cell phone, coordinating with [employer] to determine if he can do his classes remotely and determining how much she will be involved with some of his extracurricular activities such as [employer]. He did decide that after he leaves the hospital he is going to return home with family, at least for a few days. Denies any medication side effects. Physical Exam Psychiatric Orientation: alert and oriented x 3 Apperance: appropriately dressed and appropriately groomed Eye Contact: good eye contact Motor Behavior: no abnormal motor movements Speech: normal rate/rhythm/volume of speech Affect: + depressed affect Mood: + depressed mood and + anxious mood Thought Process: goal directed thought process Thought Content: reality based without delusions Suicidal Thoughts: denies suicidal thoughts (but attempt prior to admission), denies suicidal plan and denies suicidal intent Homicidal Thoughts: denies homicidal thoughts Hallucinations: no auditory hallucinations and no visual hallucinations Cognition: recent memory grossly intact, remote memory grossly intact, attention grossly intact and language grossly intact Estimated Intelligence: consistent with education level Insight: + fair insight Judgement: + limited judgement Vital Signs (Past 24 Hours) Last Vital Signs Temp 36.7 C 08/25/22 06:31 Pulse 81 08/25/22 06:31 Resp 18 08/25/22 06:31 BP 109/63 08/25/22 06:32 Pulse Ox 99 08/21/22 08:43 O2 Del Method 08/21/22 11:15 Results & Data ([facility]) Current Inpatient Medications Current Inpatient Medications: Current Inpatient Medications Acetaminophen (Acetaminophen 325 Mg Tab) 650 mg PO Q4H PRN PRN Reason: Headache or Minor Fever Stop: 09/21/22 08:10 Al Hydrox/Mg Hydrox/Simethicone (Aluminum/Magnesium Susp 30 Ml Udc) 30 ml PO Q4H PRN PRN Reason: GI Upset Stop: 09/21/22 08:10 Bismuth Subsalicylate (Bismuth Subsalicylate Liqd 236 Ml) 15 ml PO PRN PRN PRN Reason: Loose Stool Stop: 09/21/22 08:10 Hydroxyzine HCl (Hydroxyzine Hcl 25 Mg Tab) 50 mg PO HSZ PRN PRN Reason: Insomnia Stop: 09/21/22 08:10 Hydroxyzine HCl (Hydroxyzine Hcl 25 Mg Tab) 25 mg PO Q4H PRN PRN Reason: Anxiety Stop: 09/21/22 08:10 Magnesium Hydroxide (Magnesium Hydroxide Susp 30 Ml Udc) 30 ml PO DAILY PRN PRN Reason: Constipation Stop: 09/21/22 08:10 Sertraline HCl (Sertraline Hcl 50 Mg Tablet) 50 mg PO QAM PATRICE Stop: 09/23/22 08:59 Last Admin: 08/25/22 08:35 Dose: 50 mg Sodium Chloride (Sodium Chloride 0.65% Na Soln 45 Ml ([place])) 1 - 2 sprays NA PRN PRN PRN Reason: Nasal Dryness/Congestion Stop: 09/21/22 08:10 Zinc Acetate/Diphenhydramine (Diphenhydramine 2%/Zinc 0.1% Cream 28gm Tube) 1 appln EXT BID PRN PRN Reason: itching/irritation Stop: 09/20/22 15:39 Last Admin: 08/21/22 22:12 Dose: 1 appln Mental Health & Subst Abuse Tx Psychiatrist Name of Psychiatrist: [facility] / BREANNA Guzman Psychiatrist's Date of Appointment with Psychiatrist: 09/04/22 Time of Appointment with Psychiatrist: 2:30 PM Psychiatric Appointment Comment: [place] [address] Therapist Name of Therapist: BREANNA Dozier Therapist's Date of Therapist Appointment: 08/30/22 Time of Therapist Appointment: 3:00 PM Therapy Appointment Comment: [address] [place] [address] [address] [place] Name of [facility]: [employer] [facility] Phone Number for [employer]: [phone] Date of Appointment with [facility]: 08/28/22 Time of Appointment with [facility]: 10 AM Case Management Appointment Comment: Please check your [facility] email for a Zoom link. Post Discharge Appointments Primary Care Physician Name Of Family Doctor: Office of Dr. Rehman (referral faxed to establish as new patient) Primary Care Provider Appointment Comment: [address], [address], [place] [id number] Contact Information Discharge
--- NOTE | 2022-08-26 09:08 | Psychiatric Progress Note ---
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 08/26/22: improving, future focussed (1) Major depressive disorder, single episode with anxious distress: (2) Suicide attempt by cutting of wrist: (3) Insomnia: Plan 08/27/22: assist patient with going through phone messages related to disappearance so he can process as part of safety planning. 08/26/22: continue current medications and tx plan. safety planning. 08/25/22: Continue with current medications and treatment plan. Working on establishment of outpatient resources. 08/24/22: Continue with current medications and tx plan. Family meeting held. 08/23/22: Increase sertraline to 50mg qd. Discontinue trazodone. Vistaril 50mg qhs prn for insomnia. 08/22/22: Continue with sertraline 25mg qd and current tx plan. 08/21/22: The patient was admitted to the [facility] ([facility]) on q15 min checks (behavioral with suicide precautions) for safety. The patient will participate in group, recreational, and milieu therapies and will be offered additional individual and family sessions as clinically appropriate. -sertraline 25mg qd -trazodone 50mg qhs prn Inventory Assets Strengths: supportive relationships, willing to get treatment, resilient, driven/motivated, kind Needs: safety and stabilization, medication adjustment, additional coping skills, increased outpatient services Suicide Risk Level Suicide Risk Level: Moderate (q15 min suicide checks) Risk Factors Assessment Male: Yes : Yes Do You Have Access To A Gun?: No Health Problems: No Mental Health Diagnoses: Yes Substance Use Disorders: Yes Previous Attempt: No Family History of Suicide: No Previous Psychiatric Hospitalization: No Hopelessness: Yes Protective Factors Assessment Employed: No Stable Relationships: Yes Supportive Family: Yes Interval History Identifying Information TYRONE MARION is a 22-year-old man and [employer] student who currently lives in off- campus in a house with roommates, has no formal psychiatric history, and was admitted on 08/21/22 10:58 on a 201 voluntary commitment for depression and suicide attempt via cutting. Chief Complaint "I'm getting there" Review of Systems Sleep Information Total Hours of Sleep: 6 Meal Information Percent Meal Consumed - Breakfast: 100 Percent Meal Consumed - Lunch: 100 Percent Meal Consumed - Dinner: 100 Subjective Subjective Patient was seen & assessed and interval progress reviewed with nursing and social work. No issues overnight. Continuing to show improvement. Med compliant without side effects. Physical Exam Psychiatric Orientation: alert and oriented x 3 Apperance: appropriately dressed and appropriately groomed Eye Contact: good eye contact Motor Behavior: no abnormal motor movements Speech: normal rate/rhythm/volume of speech Affect: euthymic affect Mood: + anxious mood Thought Process: goal directed thought process Thought Content: reality based without delusions Suicidal Thoughts: denies suicidal thoughts Homicidal Thoughts: denies homicidal thoughts Hallucinations: no auditory hallucinations and no visual hallucinations Cognition: attention grossly intact and language grossly intact Vital Signs (Past 24 Hours) Last Vital Signs Temp 36.4 C L 08/26/22 06:38 Pulse 87 08/26/22 06:39 Resp 16 08/26/22 06:38 BP 127/75 08/26/22 06:39 Pulse Ox 99 08/21/22 08:43 O2 Del Method 08/21/22 11:15 Results & Data ([facility]) Current Inpatient Medications Current Inpatient Medications: Current Inpatient Medications Acetaminophen (Acetaminophen 325 Mg Tab) 650 mg PO Q4H PRN PRN Reason: Headache or Minor Fever Stop: 09/21/22 08:10 Al Hydrox/Mg Hydrox/Simethicone (Aluminum/Magnesium Susp 30 Ml Udc) 30 ml PO Q4H PRN PRN Reason: GI Upset Stop: 09/21/22 08:10 Bismuth Subsalicylate (Bismuth Subsalicylate Liqd 236 Ml) 15 ml PO PRN PRN PRN Reason: Loose Stool Stop: 09/21/22 08:10 Hydroxyzine HCl (Hydroxyzine Hcl 25 Mg Tab) 50 mg PO HSZ PRN PRN Reason: Insomnia Stop: 09/21/22 08:10 Hydroxyzine HCl (Hydroxyzine Hcl 25 Mg Tab) 25 mg PO Q4H PRN PRN Reason: Anxiety Stop: 09/21/22 08:10 Magnesium Hydroxide (Magnesium Hydroxide Susp 30 Ml Udc) 30 ml PO DAILY PRN PRN Reason: Constipation Stop: 09/21/22 08:10 Sertraline HCl (Sertraline Hcl 50 Mg Tablet) 50 mg PO QAM PATRICE Stop: 09/23/22 08:59 Last Admin: 08/25/22 08:35 Dose: 50 mg Sodium Chloride (Sodium Chloride 0.65% Na Soln 45 Ml ([place])) 1 - 2 sprays NA PRN PRN PRN Reason: Nasal Dryness/Congestion Stop: 09/21/22 08:10 Zinc Acetate/Diphenhydramine (Diphenhydramine 2%/Zinc 0.1% Cream 28gm Tube) 1 appln EXT BID PRN PRN Reason: itching/irritation Stop: 09/20/22 15:39 Last Admin: 08/21/22 22:12 Dose: 1 appln Mental Health & Subst Abuse Tx Psychiatrist Name of Psychiatrist: [facility] / BREANNA Guzman Psychiatrist's Date of Appointment with Psychiatrist: 09/04/22 Time of Appointment with Psychiatrist: 2:30 PM Psychiatric Appointment Comment: [facility] [place] [id number] Therapist Name of Therapist: BREANNA Dozier Therapist's Date of Therapist Appointment: 08/30/22 Time of Therapist Appointment: 3:00 PM Therapy Appointment Comment: [address] [place] [id number] Activities Director Name of Activities Director: Student Care [employer]ocacy Phone Number for Activities Director: [phone] Date of Appointment with Activities Director: 08/28/22 Time of Appointment with Activities Director: 10 AM Case Management Appointment Comment: Please check your [email or web address] email for a Zoom link. Post Discharge Appointments Primary Care Physician Name Of Family Doctor: Office of Dr. Rehman (referral faxed to establish as new patient) Primary Care Provider Appointment Comment: [address], [address], [place] [address] Contact Information Discharge
[2022-08-26] MEDS: SERTRALINE HCL 50 MG TABLET PO SCH (09:35)
[2022-08-27] MEDS: SERTRALINE HCL 50 MG TABLET PO SCH (09:12)
--- NOTE | 2022-08-27 14:02 | Discharge Summary ---
Date of Service August 27, 2022 History of Present Illness As per Dr. 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 He states he's been depressed for awhile but did not want to burden others so he has been dealing with it on his own and felt like he should be able to manage on his own. Yesterday he decided to act on his thoughts of suicide and walked off campus into the [facility], ditched his cell phone so he wouldn't burden others/his location be traceable and then cut himself with a knife around 3 or 4pm but it was not sharp enough and the cuts were not bleeding very much. At this point he tried to think of other ways "I could quickly do it" and considered jumping from scaffolding on a construction site but changed his mind. He remained outside all night, [place]. He was very cold but also ambivalent about potentially dying in his sleep. This morning, "something told me not" in terms of attempting suicide and so he returned to his apartment around 6am and his sister and brother were there and brought him to the hospital. While he was in the [facility] yesterday he missed a large [employer] event which concerned his friends who alerted his sister who posted that he was missing on facebook which resulted in significant media exposure and resulted in police and community search efforts yesterday. This adds to his current stress as he feels guilt and shame about this and wonders how others will view him after his attempt and disappearance. He endorses current depressive symptoms including anhedonia, tearfulness, self- guilt, hopelessness, helplessness, decreased energy slightly, decreased motivation-still going to classes but so much harder, decreased concentration, decreased sleep about 5 or 6 hours a night with difficulty falling asleep due to racing thoughts, decreased appetite. He endorse anxiety symptoms including excessive worry, fatigue, irritability, insomnia, decreased concentration, and no panic attacks. Further recent history reviewed and confirmed as documented in qual research manager note from 08/21/22: "Cedric was brought into ED by his family for a mental health evaluation. Cedric was reported missing by his family and was searched for throughout the night by police who found his phone in the middle of the road. Officer Mauro present to speak with patient. Cedric stated he has been struggling in "stuff" for approx. 5 years. He stated he tried to "deal with it on my own" and stated he never told anyone about it. Cedric stated he struggled with being alone and always felt he needed to be around people "to distract me." Cedric had difficulty verbalizing how he was feeling when asked questions. Cedric has cut on wrist that he stated was an attempt to harm himself. Cedric stated what he used to cut was not sharp enough. Dr. Osorio asked patient if cut was to harm or kill himself. Cedric replied "the later." Cedric stated he does not want to talk about things in front of his family and he verbalized he would like to talk to them about it in his own time. Physician asked patient if he would be willing to stay in the hospital for help and he replied "I think I need to." Met with patient bedside to complete mental health evaluation. Patient presents sad, tearful at times and cooperative in answering all questions asked of him. Two nights ago, patient was up late and was "stuck in my head" about all going on and of the past. The next morning, patient left his apartment around 10am and walked to [facility]. Along the way, patient threw his cell phone away as not to be bothered or tracked down by anyone. Patient walked around in the [place] for awhile and then attempted to cut his wrist in an attempt to end his life. Patient reports the knife was not sharp enough and was "not successful" in what he intended to do. Patient then began wandering [place] again, getting lost and then came upon a construction site. Patient then contemplated jumping off the scaffolding, but chose not to. Patient then thought it best to return to his apartment around 6am this morning. Patient then came to the ED for further evaluation and treatment. Patient began having vague/passive suicidal ideations, reporting over the past two weeks have worsened. Patient has always struggled with depression, but has "always pushed thought them." Although patient has a lot of support, he does not want to burden anyone else with his problems. Patient identifies stressors as his Dad dying when he was 15y/o, his Mom has Cook's Disease and is deteriorating, he is the middle person between his siblings of a disagreement and he was recently accused of academic integrity. Patient reports depressive symptoms as feelings of helpless/hopelessness, self-devaluation, guilt, loss of daily functioning, lack of motivation, anhedonia, poor concentration, decrease in ADL's, appetite and quality of sleep. Patient describes moderate anxiety most days with symptoms of sweating and restlessness." He is not currently prescribed any psychiatric medications. Psychiatric ROS notable for no current nor history of symptoms of imelda, psychosis, PTSD, OCD nor eating disorder. Physical Exam Psychiatric See admission H&P and DOD assessment. Vital Signs (Past 24 Hours) Last Vital Signs Temp 36.5 C 08/27/22 09:42 Pulse 84 08/27/22 09:42 Resp 16 08/27/22 09:42 BP 109/63 08/27/22 09:42 Pulse Ox 99 08/27/22 09:42 O2 Del Method 08/21/22 11:15 Principal Diagnosis major depressive disorder Psychiatric Data See daily stay summary. In short, safety was maintained and the patient was cooperative with care. Medication changes included a trial of Zoloft and they tolerated this well. The patient's sister was involved with his stay and safety plan was completed prior to discharge. Given the public circumstances around his disappearance, it was recommended that the patient go through his phone messages/texts/etc. with staff support prior to discharge. He was overwhelmed but ultimately felt supported by others and was able to process prior to his day of discharge. He plans to work on his classes remotely for a few weeks before returning to campus and will consult with student care & advocacy. He plans to work on scripting for peers when does become more active socially/return to [employer] meetings, etc. to minimize stress. He was future focussed with regards to graduation and ultimate work in [employer] as has a job lined up after graduation and is thankful for that. Day of Discharge Assessment Today the patient voices readiness for discharge. They note improvement in mood and deny thoughts to harm self or others. Thoughts remain organized and they are improved from admission. There is no evidence of psychosis. They agree to take mediations as prescribed and keep follow-up appointments. They are stable for discharge to outpatient level of care. Transition of Care Transition Of Care Record: was reviewed with the patient Advance Directives Advance Directives Information Provided: Yes Advance Directives: No Mental Health Advance Directive: No Advance Directives on File: No Living Will: No Power of Management Engineer: No Advance Directives Reason:: Declines as Mental Health Visit. Suicide Risk Level Suicide Risk Level Comments: Suicide risk at discharge is deemed low as the patient is no longer requiring 24-hr monitoring, has a safety plan, and is free of suicidal ideation at discharge. Risk Factors Assessment Male: Yes : Yes Do You Have Access To A Gun?: No Health Problems: No Mental Health Diagnoses: Yes Substance Use Disorders: Yes Previous Attempt: No Family History of Suicide: No Previous Psychiatric Hospitalization: No Hopelessness: Yes Protective Factors Assessment Employed: No Stable Relationships: Yes Supportive Family: Yes Tobacco Cessation at Discharge Tobacco Cessation Medication Prescribed at Discharge: Not Applicable/Non-Smoker Total Time Total Time Spent: Greater Than 30 Minutes Total Time Includes: Examination of the patient, Discharge Planning and Medication Reconciliation Discharge Data Lab Results 08/21/22 08/21/22 08/21/22 06:46 07:36 07:36 WBC 9.86 RBC 5.09 Hgb 15.5 Hct 44.6 MCV 87.6 MCH 30.5 MCHC 34.8 RDW Std Deviation 38.0 RDW Coeff of Lucas 11.8 Plt Count 277 MPV 10.6 Immature Gran % (Auto) 0.4 Neut % (Auto) 85.8 Lymph % (Auto) 10.2 Wal[place] % (Auto) 3.1 Eos % (Auto) 0.1 Baso % (Auto) 0.4 Neut # (Auto) 8.45 H Lymph # (Auto) 1.01 L [place] # (Auto) 0.31 Eos # (Auto) 0.01 Baso # (Auto) 0.04 Immature Gran # (Auto) 0.04 H Sodium 137 Potassium 3.6 Chloride 100 Carbon Dioxide 26 Anion Gap 11 BUN 19 Creatinine 0.87 Est Cr Clr Drug Dosing 147.4 Est GFR ( Amer) 143.0 Est GFR (Non-Af Amer) 123.4 BUN/Creatinine Ratio 21.8 H Glucose 167 H Calcium 10.2 H Total Bilirubin 0.8 AST 18 ALT 16 Alkaline Phosphatase 88 Total Protein 8.3 Albumin 5.3 H Globulin 3.0 Albumin/Globulin Ratio 1.8 TSH Urine Color Urine Appearance Urine pH Ur Specific Mansfield Urine Protein Urine Glucose (UA) Urine Ketones Urine Blood Urine Nitrite Urine Bilirubin Urine Urobilinogen Ur Leukocyte Esterase Salicylates Urine Opiates Screen Ur Methadone, Qual Acetaminophen Urine Barbiturates Ur Phencyclidine (PCP) U Amphetamin/Meth Scrn MDMA (Ecstasy) Screen U Benzodiazepines Scrn Ur Cocaine Metabolite U Marijuana (THC) Screen U Marijuana THC Carboxy Drug Screen Comment Ethyl Alcohol mg/dL SARS-CoV-2, RNA, NAAT NEGATIVE 08/21/22 08/21/22 08/21/22 07:36 07:36 07:36 WBC RBC Hgb Hct MCV MCH MCHC RDW Std Deviation RDW Coeff of Lucas Plt Count MPV Immature Gran % (Auto) Neut % (Auto) Lymph % (Auto) [place] % (Auto) Eos % (Auto) Baso % (Auto) Neut # (Auto) Lymph # (Auto) [place] # (Auto) Eos # (Auto) Baso # (Auto) Immature Gran # (Auto) Sodium Potassium Chloride Carbon Dioxide Anion Gap BUN Creatinine Est Cr Clr Drug Dosing Est GFR ( Amer) Est GFR (Non-Af Amer) BUN/Creatinine Ratio Glucose Calcium Total Bilirubin AST ALT Alkaline Phosphatase Total Protein Albumin Globulin Albumin/Globulin Ratio TSH 2.067 Urine Color Urine Appearance Urine pH Ur Specific Mans[place] Urine Protein Urine Glucose (UA) Urine Ketones Urine Blood Urine Nitrite Urine Bilirubin Urine Urobilinogen Ur Leukocyte Esterase Salicylates < 3.0 L Urine Opiates Screen Ur Methadone, Qual Acetaminophen < 3 L Urine Barbiturates Ur Phencyclidine (PCP) U Amphetamin/Meth Scrn MDMA (Ecstasy) Screen U Benzodiazepines Scrn Ur Cocaine Metabolite U Marijuana (THC) Screen U Marijuana THC Carboxy Drug Screen Comment Ethyl Alcohol mg/dL < 10.0 SARS-CoV-2, RNA, NAAT 08/21/22 08/21/22 08/21/22 08:46 08:46 08:46 WBC RBC Hgb Hct MCV MCH MCHC RDW Std Deviation RDW Coeff of Lucas Plt Count MPV Immature Gran % (Auto) Neut % (Auto) Lymph % (Auto) Wal[place] % (Auto) Eos % (Auto) Baso % (Auto) Neut # (Auto) Lymph # (Auto) [place] # (Auto) Eos # (Auto) Baso # (Auto) Immature Gran # (Auto) Sodium Potassium Chloride Carbon Dioxide Anion Gap BUN Creatinine Est Cr Clr Drug Dosing Est GFR ( Amer) Est GFR (Non-Af Amer) BUN/Creatinine Ratio Glucose Calcium Total Bilirubin AST ALT Alkaline Phosphatase Total Protein Albumin Globulin Albumin/Globulin Ratio TSH Urine Color Yellow Urine Appearance Clear Urine pH 5.5 Ur Specific Mansfield 1.022 Urine Protein Negative Urine Glucose (UA) Trace H Urine Ketones Trace H Urine Blood Negative Urine Nitrite Negative Urine Bilirubin Negative Urine Urobilinogen Negative Ur Leukocyte Esterase Negative Salicylates Urine Opiates Screen Neg Ur Methadone, Qual Neg Acetaminophen Urine Barbiturates Neg Ur Phencyclidine (PCP) Neg U Amphetamin/Meth Scrn Neg MDMA (Ecstasy) Screen Neg U Benzodiazepines Scrn Neg Ur Cocaine Metabolite Neg U Marijuana (THC) Screen Pos H U Marijuana THC Carboxy 195 H Drug Screen Comment SEE NOTE Ethyl Alcohol mg/dL SARS-CoV-2, RNA, NAAT Hospital Course (1) Major depressive disorder, single episode with anxious distress: (2) Suicide attempt by cutting of wrist: (3) Insomnia: Plan 08/27/22: assist patient with going through phone messages related to disappearance so he can process as part of safety planning. 08/26/22: continue current medications and tx plan. safety planning. 08/25/22: Continue with current medications and treatment plan. Working on establishment of outpatient resources. 08/24/22: Continue with current medications and tx plan. Family meeting held. 08/23/22: Increase sertraline to 50mg qd. Discontinue trazodone. Vistaril 50mg qhs prn for insomnia. 08/22/22: Continue with sertraline 25mg qd and current tx plan. 08/21/22: The patient was admitted to the [facility] ([facility]) on q15 min checks (behavioral with suicide precautions) for safety. The patient will participate in group, recreational, and milieu therapies and will be offered additional individual and family sessions as clinically appropriate. -sertraline 25mg qd -trazodone 50mg qhs prn Mental Health & Subst Abuse Tx Psychiatrist Name of Psychiatrist: [facility] / [facility] - Psychiatrist's Date of Appointment with Psychiatrist: 09/04/22 Time of Appointment with Psychiatrist: 2:30 PM Psychiatric Appointment Comment: [place] [address] Psychiatrist Release of Information: Obtained, Reviewed and Signed Therapist Name of Therapist: BREANNA Dozier Therapist's Date of Therapist Appointment: 08/30/22 Time of Therapist Appointment: 3:00 PM Therapy Appointment Comment: [address] [place] [id number] Therapist Release of Information: Obtained, Reviewed and Signed Compound Machine Operator Name of Compound Machine Operator: Student Care and Advocacy Phone Number for Compound Machine Operator: [phone] Date of Appointment with Compound Machine Operator: 08/28/22 Time of Appointment with Compound Machine Operator: 10 AM Case Management Appointment Comment: Please check your [employer] email for a Zoom link. Post Discharge Appointments Primary Care Physician Name Of Family Doctor: Office of Dr. Rehman (referral faxed to establish as new patient) Primary Care Provider Appointment Comment: Reji Doyle [address], [place] [address] Primary Care Release of Information: Obtained, Reviewed and Signed Smoking Cessation Counseling Tobacco Cessation Medication Prescribed at Discharge: Not Applicable/Non-Smoker Other #2: Name of Aftercare Appointment: [facility] Phone Number of Aftercare Appointment: [phone] Date of Aftercare Appointment: 08/29/22 Time of Aftercare Appointment: 9am Aftercare Appointment Comment: Use Robyn Doyle. enterence Release of Information Aftercare Appointment: Obtained, Reviewed and Signed Contact Information Discharge Discharge Address: [facility] [place] [address] Discharge Plan Discharge Items Patient Disposition: Home - Self-Care Reason For Visit: MDD Discharge Diagnosis: same Activity: Resume your previous activity Non-emergency contact: Primary Care Provider, Psychiatrist and Therapist Call non-emergency contact if: you have any medication questions and your symptoms worsen Follow-up/Referrals: PCP,NO [Primary Care Provider] - Diet: Regular Addtl Attending Provider Instructions: SPECIAL CARE INSTRUCTIONS: 1. Follow through with your scheduled aftercare appointments. If unable to keep an appointment, please call to reschedule. 2. Take your medication only as prescribed. Medication should not be changed or stopped without the approval of your doctor. In the event of worsening symptoms or concerns about side effects, contact your doctor immediately. 3. Utilize new healthy coping skills, anger management skills, and stress management skills learned during your hospitalization. Journal feelings and process them with a support person. Identify stressors or situations that may result in relapse, deterioration or inappropriate behaviors and develop a plan to deal with those issues. 4. If your coping skills are ineffective and you are in crisis, contact your outpatient providers for direction. If unable to reach your providers, please call the [facility] CRISIS LINE AT , go to the [facility] walk-in center at [address], [address], [place], or go to the closest Emergency Room. 5. Avoid alcohol and un-prescribed drugs. 6. You have been provided with the Mental Health Advance Directives Pamphlet for your review. 7. Your condition is stable for discharge to outpatient level of care, but recovery is an ongoing process. Ifthoughts to harm yourself or others return, follow the safety plan developed during your stay. Planning for a safe return home includes securing weapons. Our treatment team recommends weaponsbe removed from the home until your outpatient provider reassesses your progress. In rare cases where the items themselvescannot be removed, guns and ammunitionshould be secured separatelyand keys stored by a reliable personoutside of the home. If you were admitted on an involuntary commitment, the police or other legal authorities may be involved in this process. AFTERCARE APPOINTMENTS: * Please call your insurance company prior to your scheduled appointment to confirm your aftercare providers are covered. Take your insurance information to your appointments. WHO TO CALL AND WHEN: Medical Emergencies: For questions or emergencies related to your hospital stay, please contact the Inpatient Behavioral Health Unit at [phone]. A pipe machine operator is on-call 11/06 for the Behavioral Health Unit for emergencies At any time you feel your situation is an emergency, you may also call 911 immediately. Pending Studies at Discharge: No Stand-Alone Forms: [facility] [employer], Smoking Cessation Medications and DC Order Prescriptions: New sertraline 50 mg Tablet 50 mg PO QAM Qty: 30 0RF Discharge Orders: Discharge Order (Routine); Ordered 08/27/22 Ordered By: Darling Bosch Admission Data Admit Date/Time: 08/21/22 10:58 Attending Provider: Darling Bosch Admit Provider: Beatrice Queen Primary Care Provider: PCP,NO Other Interventions: Discharge Summary Assessment (RN) Last Done: 08/27/22 09:42 PSY Interdisciplinary Discharge Planning Last Done: 08/27/22 09:45 Coding Level of Care Code 28004 D/C day mgmt > 30 min Diagnoses Major depressive disorder, single episode with anxious distress F32.9 Suicide attempt by cutting of wrist X78.9XXA Insomnia G47.00
== END 2022-08-27 10:46 | disposition home or self-care (01) | DRG 881 ==
LOC: ED 06:05 → SUATTDRO 10:58 → 3S 10:58
DX: G47.00 Insomnia, unspecified; F32.9 Major depressive disorder, single episode, unspecified; T14.91XA Suicide attempt, initial encounter; X78.9XXA Intentional self-harm by unspecified sharp object, initial encounter

== ENCOUNTER 2022-10-18 14:44 | Inpatient (IN) ==
--- NOTE | 2022-10-18 15:17 | Emergency Department Note ---
History of Present Illness General Chief complaint: Mental Health Evaluation Stated complaint: ANXIETY, DEPRESSION, SUICIDAL IDEATION Time Seen by Provider: 10/18/22 14:59 History of Present Illness Provider complaint: Mental health evaluation Onset (ago): week(s) 3 22-year-old male presents emergency department for mental health evaluation. Patient ports last 3 weeks he has been feeling increasingly depressed and wanting to kill himself. Patient states he has been thinking about trying to hang himself. No access to any firearms. No drugs or alcohol. Home Medications Medication Instructions Recorded Confirmed Type sertraline 50 mg tablet 50 mg PO QAM #30 tabs 08/27/22 Rx Allergies Allergy/AdvReac Type Severity Reaction Status Date / Time cat dander Allergy Verified 08/21/22 15:05 grass pollen Allergy Verified 08/21/22 15:05 Past Med/Surg History Medical History (Updated 10/18/22 @ 17:57 by Gigi Cabral) Insomnia No pertinent family history Suicide attempt by cutting of wrist Surgical History (Updated 10/18/22 @ 15:15 by Gigi Cabral) No pertinent past surgical history Social History Smoking Status: Current some day smoker Preferred Language: Macedonian Communication Ability: Effective 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 Beliefs That Will Affect Care: None Feels Safe at Home: Yes Assistive Devices: None Review of Systems A total of 10 systems reviewed and were otherwise negative Physical Exam Vital Signs Vital Signs - 24 hr 10/18/22 14:53 10/18/22 15:21 Temperature 36.7 C Temperature Source Temporal Artery Scan Pulse Rate 83 Pulse Rate [Apical] 76 Pulse Rhythm Regular Pulse Strength Normal Respiratory Rate 18 18 Respiratory Effort / Characteristics Non-Labored Spontaneous Respiratory Depth Normal Respiratory Pattern Regular Blood Pressure 144/81 H Blood Pressure Mean 102 Blood Pressure Position Sitting Pulse Oximetry 97 Oxygen Delivery Method Room Air Sepsis Recent Fever Within 48 Hours No Sepsis New/Unexplained Change in Mental Status No Sepsis Action Taken by Nursing No Action Required Physical Exam GENERAL: He is oriented to person, place, and time. He appears well-developed and well-nourished. He does not appear distressed. HENT: Exam performed. - Head: Normocephalic and atraumatic. - Right Ear: External ear normal. No mastoid tenderness. - Left Ear: External ear normal. No mastoid tenderness. - Mouth/Throat: The oropharynx is clear and moist. No trismus in the jaw. No dental abscesses or uvula swelling. No oropharyngeal exudate or tonsillar abscesses. EYES: Conjunctivae and EOM are normal. Pupils are equal, round, and reactive to light. Right eye exhibits no discharge. Left eye exhibits no discharge. No scleral icterus. NECK: Normal range of motion. Neck supple. No JVD present. No spinous process tenderness present. No carotid bruit present. No rigidity. No tracheal deviation and normal range of motion present. No Brudzinski's sign and no Kernig's sign noted. CV: Normal rate, regular rhythm, normal heart sounds and intact distal pulses. There is no peripheral edema. Palpable radial pulses bue. PULM/CHEST: Effort normal and breath sounds normal. No respiratory distress. No stridor. He has no wheezes. He has no rales. - Chest Wall: He exhibits no tenderness. ABD: The abdomen is soft. Bowel sounds are normal. He has no distension. No mass is present. There is no tenderness. There is no rebound, no guarding, no M urphy's sign and no tenderness at McBurney's point. Rovsig negative. MUSC/SKEL: Normal range of motion. There is no peripheral edema, tenderness or deformity. LYMPH: No cervical adenopathy. NEURO: He is alert and oriented to person, place, and time. He has normal strength. No cranial nerve deficit or sensory deficit. Coordination and gait normal. GCS eye subscore is 4. GCS verbal subscore is 5. GCS motor subscore is 6. Cerebellar tests wnl. SKIN: Previous self harming scars on his bilateral wrist. No active lacerations or cuts. PSYCH: Depressed. Suicidal ideation. Course Course 1459: The patient was evaluated in room A6. A complete history and physical exam was performed 1530: Patient medically cleared. Awaiting psychiatric evaluation and placement. 1755: Patient admitted to S psychiatry. Medical Decision Making Laboratory Data Result diagrams: 10/18/22 15:27 10/18/22 15:27 Lab Results 10/18/22 10/18/22 10/18/22 Range/Units 15:27 15:27 15:27 WBC 4.07 L (4.8-10.8) K/ul RBC 4.66 (4.63-6.08) M/uL Hgb 14.5 (14.0-18.0) g/dl Hct 40.5 (40.1-51.0) % MCV 86.9 (80.0-100.0) fL MCH 31.1 (25.0-34.0) pg MCHC 35.8 (32.0-36.0) g/dL RDW Std Deviation 38.5 (36.4-46.3) fL RDW Coeff of Lucas 12.2 (11.5-14.5) % Plt Count 247 (130-400) K/uL MPV 10.5 (9.4-12.4) fL Immature Gran % (Auto) 0.2 % Neut % (Auto) 64.7 % Lymph % (Auto) 21.4 % [place] % (Auto) 12.0 % Eos % (Auto) 1.0 % Baso % (Auto) 0.7 % Neut # (Auto) 2.63 (1.4-6.5) K/uL Lymph # (Auto) 0.87 L (1.2-3.4) K/uL [place] # (Auto) 0.49 (0.24-0.82) K/uL Eos # (Auto) 0.04 (0-0.50) K/uL Baso # (Auto) 0.03 (0-0.2) K/uL Immature Gran # (Auto) 0.01 (0.00-0.02) K/uL Sodium 138 (136-145) mmol/L Potassium 3.8 (3.5-5.1) mmol/L Chloride 104 (98-107) mmol/L Carbon Dioxide 24 (21-32) mmol/L Anion Gap 10 (3-11) BUN 19 (6-23) mg/dl Creatinine 0.77 (0.6-1.4) mg/dl Est Cr Clr Drug Dosing 180.8 ml/min Est GFR ( Amer) > 150.0 ml/min Est GFR (Non-Af Amer) 129.7 ml/min BUN/Creatinine Ratio 24.7 H (10-20) Glucose 91 (70-99(Fasting)) mg/dl Calcium 10.2 H (8.5-10.1) mg/dl Total Bilirubin 1.0 (0.2-1.0) mg/dl AST 14 (13-39) U/L ALT 29 (7-52) U/L Alkaline Phosphatase 95 (34-104) U/L Total Protein 7.9 (6.0-8.3) gm/dl Albumin 5.0 (3.4-5.0) gm/dl Globulin 2.9 (2.5-4.0) gm/dl Albumin/Globulin Ratio 1.7 (0.9-2) TSH 1.942 (0.300-4.500) uIu/ml Urine Color Urine Appearance (Clear) Urine pH (4.5-7.5) Ur Specific Oracle (1.000-1.030) Urine Protein (Negative) Urine Glucose (UA) (Negative) Urine Ketones (Negative) Urine Blood (Negative) Urine Nitrite (Negative) Urine Bilirubin (Negative) Urine Urobilinogen (Negative) Ur Leukocyte Esterase (Negative) Salicylates (3.0-30) mg/dl Urine Opiates Screen (Neg) Ur Methadone, Qual (Neg) Acetaminophen (10-30) ug/ml Urine Barbiturates (Neg) Ur Phencyclidine (PCP) (Neg) U Amphetamin/Meth Scrn (Neg) MDMA (Ecstasy) Screen (Neg) U Benzodiazepines Scrn (Neg) Ur Cocaine Metabolite (Neg) U Marijuana (THC) Screen (Neg) Ethyl Alcohol mg/dL (<10.0) mg/dl SARS-CoV-2, RNA, NAAT (NEGATIVE) 10/18/22 10/18/22 10/18/22 Range/Units 15:27 15:27 15:27 WBC (4.8-10.8) K/ul RBC (4.63-6.08) M/uL Hgb (14.0-18.0) g/dl Hct (40.1-51.0) % MCV (80.0-100.0) fL MCH (25.0-34.0) pg MCHC (32.0-36.0) g/dL RDW Std Deviation (36.4-46.3) fL RDW Coeff of Lucas (11.5-14.5) % Plt Count (130-400) K/uL MPV (9.4-12.4) fL Immature Gran % (Auto) % Neut % (Auto) % Lymph % (Auto) % [place] % (Auto) % Eos % (Auto) % Baso % (Auto) % Neut # (Auto) (1.4-6.5) K/uL Lymph # (Auto) (1.2-3.4) K/uL [place] # (Auto) (0.24-0.82) K/uL Eos # (Auto) (0-0.50) K/uL Baso # (Auto) (0-0.2) K/uL Immature Gran # (Auto) (0.00-0.02) K/uL Sodium (136-145) mmol/L Potassium (3.5-5.1) mmol/L Chloride (98-107) mmol/L Carbon Dioxide (21-32) mmol/L Anion Gap (3-11) BUN (6-23) mg/dl Creatinine (0.6-1.4) mg/dl Est Cr Clr Drug Dosing ml/min Est GFR ( Amer) ml/min Est GFR (Non-Af Amer) ml/min BUN/Creatinine Ratio (10-20) Glucose (70-99(Fasting)) mg/dl Calcium (8.5-10.1) mg/dl Total Bilirubin (0.2-1.0) mg/dl AST (13-39) U/L ALT (7-52) U/L Alkaline Phosphatase (34-104) U/L Total Protein (6.0-8.3) gm/dl Albumin (3.4-5.0) gm/dl Globulin (2.5-4.0) gm/dl Albumin/Globulin Ratio (0.9-2) TSH (0.300-4.500) uIu/ml Urine Color Urine Appearance (Clear) Urine pH (4.5-7.5) Ur Specific Oracle (1.000-1.030) Urine Protein (Negative) Urine Glucose (UA) (Negative) Urine Ketones (Negative) Urine Blood (Negative) Urine Nitrite (Negative) Urine Bilirubin (Negative) Urine Urobilinogen (Negative) Ur Leukocyte Esterase (Negative) Salicylates < 3.0 L (3.0-30) mg/dl Urine Opiates Screen (Neg) Ur Methadone, Qual (Neg) Acetaminophen < 3 L (10-30) ug/ml Urine Barbiturates (Neg) Ur Phencyclidine (PCP) (Neg) U Amphetamin/Meth Scrn (Neg) MDMA (Ecstasy) Screen (Neg) U Benzodiazepines Scrn (Neg) Ur Cocaine Metabolite (Neg) U Marijuana (THC) Screen (Neg) Ethyl Alcohol mg/dL < 10.0 (<10.0) mg/dl SARS-CoV-2, RNA, NAAT NEGATIVE (NEGATIVE) 10/18/22 10/18/22 Range/Units 16:27 16:27 WBC (4.8-10.8) K/ul RBC (4.63-6.08) M/uL Hgb (14.0-18.0) g/dl Hct (40.1-51.0) % MCV (80.0-100.0) fL MCH (25.0-34.0) pg MCHC (32.0-36.0) g/dL RDW Std Deviation (36.4-46.3) fL RDW Coeff of Lucas (11.5-14.5) % Plt Count (130-400) K/uL MPV (9.4-12.4) fL Immature Gran % (Auto) % Neut % (Auto) % Lymph % (Auto) % [place] % (Auto) % Eos % (Auto) % Baso % (Auto) % Neut # (Auto) (1.4-6.5) K/uL Lymph # (Auto) (1.2-3.4) K/uL [place] # (Auto) (0.24-0.82) K/uL Eos # (Auto) (0-0.50) K/uL Baso # (Auto) (0-0.2) K/uL Immature Gran # (Auto) (0.00-0.02) K/uL Sodium (136-145) mmol/L Potassium (3.5-5.1) mmol/L Chloride (98-107) mmol/L Carbon Dioxide (21-32) mmol/L Anion Gap (3-11) BUN (6-23) mg/dl Creatinine (0.6-1.4) mg/dl Est Cr Clr Drug Dosing ml/min Est GFR ( Amer) ml/min Est GFR (Non-Af Amer) ml/min BUN/Creatinine Ratio (10-20) Glucose (70-99(Fasting)) mg/dl Calcium (8.5-10.1) mg/dl Total Bilirubin (0.2-1.0) mg/dl AST (13-39) U/L ALT (7-52) U/L Alkaline Phosphatase (34-104) U/L Total Protein (6.0-8.3) gm/dl Albumin (3.4-5.0) gm/dl Globulin (2.5-4.0) gm/dl Albumin/Globulin Ratio (0.9-2) TSH (0.300-4.500) uIu/ml Urine Color Yellow Urine Appearance Clear (Clear) Urine pH 7.5 (4.5-7.5) Ur Specific [place] 1.020 (1.000-1.030) Urine Protein Negative (Negative) Urine Glucose (UA) Negative (Negative) Urine Ketones Negative (Negative) Urine Blood Negative (Negative) Urine Nitrite Negative (Negative) Urine Bilirubin Negative (Negative) Urine Urobilinogen Negative (Negative) Ur Leukocyte Esterase Negative (Negative) Salicylates (3.0-30) mg/dl Urine Opiates Screen Neg (Neg) Ur Methadone, Qual Neg (Neg) Acetaminophen (10-30) ug/ml Urine Barbiturates Neg (Neg) Ur Phencyclidine (PCP) Neg (Neg) U Amphetamin/Meth Scrn Neg (Neg) MDMA (Ecstasy) Screen Neg (Neg) U Benzodiazepines Scrn Neg (Neg) Ur Cocaine Metabolite Neg (Neg) U Marijuana (THC) Screen Pos H (Neg) Ethyl Alcohol mg/dL (<10.0) mg/dl SARS-CoV-2, RNA, NAAT (NEGATIVE) [facility] Narrative 1459: The patient was evaluated in room A6. A complete history and physical exam was performed 1530: Patient medically cleared. Awaiting psychiatric evaluation and placement. 1756: Patient admitted to [facility] psychiatry. Impression & Plan Depression with suicidal ideation Discharge Plan Visit Data Chief Complaint: Mental Health Evaluation Stated Complaint: ANXIETY, DEPRESSION, SUICIDAL IDEATION ED Provider: Gigi Cabral Discharge Problem: Depression with suicidal ideation Patient Disposition: Admitted As Inpatient Forms Stand Alone Forms: My [facility], Suicide Prevention Resources Prescriptions Prescriptions: No Action sertraline 50 mg Tablet 50 mg PO QAM Qty: 30 0RF Referrals Referrals: PCP,NO [Primary Care Provider] -
[2022-10-18 15:50] LABS: Basophils # (auto) 0.03 K/uL (0-0.2); Basophils % (auto) 0.7 %; Eosinophils # (auto) 0.04 K/uL (0-0.50); Hematocrit (blood only) 40.5 % (40.1-51.0); Hemoglobin 14.5 g/dl (14.0-18.0); Immature Granulocytes # (auto) 0.01 K/uL (0.00-0.02); Immature Granulocytes % (auto) 0.2 %; Lymphocytes # (auto) 0.87 K/uL (1.2-3.4); Lymphocytes % (auto) 21.4 %; Mean Corpuscular Hemoglobin 31.1 pg (25.0-34.0); Mean Corpuscular Hgb Conc 35.8 g/dL (32.0-36.0); Mean Corpuscular Volume 86.9 fL (80.0-100.0); Mean Platelet Volume 10.5 fL (9.4-12.4); Monocytes # (auto) 0.49 K/uL (0.24-0.82); Neutrophils # (auto) 2.63 K/uL (1.4-6.5); Neutrophils % (auto) 64.7 %; Platelet Count 247 K/uL (130-400); RDW Coefficient of Variation 12.2 % (11.5-14.5); RDW Standard Deviation 38.5 fL (36.4-46.3); Red Blood Count 4.66 M/uL (4.63-6.08); White Blood Count 4.07 K/ul (4.8-10.8)
[2022-10-18 16:12] LABS: Alanine Aminotransferase 29 U/L (7-52); Albumin Globulin Ratio 1.7 (0.9-2); Alkaline Phosphatase 95 U/L (34-104); Anion Gap 10 (3-11); Aspartate Aminotransferase 14 U/L (13-39); BUN Creatinine Ratio 24.7 (10-20); Blood Urea Nitrogen 19 mg/dl (6-23); Calcium 10.2 mg/dl (8.5-10.1); Carbon Dioxide 24 mmol/L (21-32); Chloride 104 mmol/L (98-107); Creatinine Clr Calc Pharmacy 180.8 ml/min; Est GFR (African American) > 150.0 ml/min; Est GFR (Non-African American) 129.7 ml/min; Globulin 2.9 gm/dl (2.5-4.0); Glucose 91 mg/dl (70-99(Fasting)); Potassium 3.8 mmol/L (3.5-5.1); Sodium 138 mmol/L (136-145); Total Protein 7.9 gm/dl (6.0-8.3)
[2022-10-18 16:15] LABS: Acetaminophen < 3 ug/ml (10-30); Salicylate < 3.0 mg/dl (3.0-30)
[2022-10-18 16:41] LABS: Appearance Urine Clear (Clear); Bilirubin Urine Negative (Negative); Blood Urine Negative (Negative); Color Urine Yellow; Glucose Urine UA Negative (Negative); Ketones Urine Negative (Negative); Leukocyte Esterase Urine Negative (Negative); Nitrite Urine Negative (Negative); Protein Urine Negative (Negative); Urobilinogen Urine Negative (Negative); pH Urine 7.5 (4.5-7.5)
[2022-10-18 17:16] LABS: Amphetamines+Metham, Urine Neg (Neg); Barbiturates, Urine Neg (Neg); Benzodiazepine, Urine Neg (Neg); Cocaine, Urine Neg (Neg); MDMA (Ecstacy), Urine Neg (Neg); Methadone, Urine Neg (Neg); Opiate, Urine Neg (Neg); Phencyclidine, Urine Neg (Neg)
[2022-10-18] MEDS ORDERED: SODIUM CHLORIDE 0.65% NA SOLN 45 ML (OCEAN) PRN (18:19)
[2022-10-18] MEDS ORDERED: ALUMINUM/MAGNESIUM SUSP 30 ML UDC PO PRN (18:19)
[2022-10-18] MEDS ORDERED: hydrOXYzine HCl 25 MG TAB PO PRN ×2 (18:19)
[2022-10-18] MEDS ORDERED: MAGNESIUM HYDROXIDE SUSP 30 ML UDC PO PRN (18:19)
[2022-10-18] MEDS ORDERED: ACETAMINOPHEN 325 MG TAB PO PRN (18:19)
[2022-10-18] MEDS ORDERED: BISMUTH SUBSALICYLATE LIQD 236 ML PO PRN (18:19)
[2022-10-18] MEDS ORDERED: FLUARIX QUADRIVALENT 0.5 ML SYR IM ONE (18:38)
--- NOTE | 2022-10-19 08:41 | History & Physical ---
Date of Service October 19, 2022 Impression / Recommendations Karla Steele is a 22 yo and [employer] student presenting for worsening depression with SI with plans following a serious attempt in August and intensifying depression now interfering with his class attendance and engagement with peers. Diagnostically consistent with major depressive disorder, severe and social anxiety related to media coverage following his suicide attempt in August 2022. The patient is deemed unstable and requires psychiatric hospitalization for diagnostic clarification, safety and stabilization, medication management and development of further coping skills. Discussed medication treatment options in detail including SSRI adjustments, Wellbutrin, or augmentation with mood stabilizer/antipsychotic. Discussed risks, benefits and alternatives. Patient would like to start and consented to Wellbutr in XL for augmentation for MDD. Reviewed side effects including but not limited to: increased HR, increased anxiety, increased BP, insomnia, decreased appetite, lowered seizure threshold and counseled on black box warning of potential for emergence of or increased SI and need to let staff know should this occur or should they feel unsafe. Also discussed importance of seeking emergency care following discharge if this side effect occurs in the future. (1) Recurrent severe major depressive disorder with anxiety: Plan 10/19/22: The patient was admitted to the [facility] ([facility]) on q15 min checks (behavioral with suicide precautions) for safety. The patient will participate in group, recreational, and milieu therapies and will be offered additional individual and family sessions as clinically appropriate. -Continue sertraline 100mg qd -Start Wellbutrin XL 150mg qd Inventory Assets Strengths: supportive relationships, willing to get treatment, outpatient providers, resilient Needs: safety and stabilization, medication adjustment, additional coping skills, increased outpatient services Suicide Risk Level Suicide Risk Level: High-Moderate (q15 min suicide checks) (High-Moderate due to severe depression with SI with plan prior to admission but feels safe in the hospital, able to safety contract and agrees to let nursing/staff know should they develop plan, intent or feel unable to remain safe. 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 Chief Complaint "I feel alright when I'm around people but when I'm by myself not so much". History of Present Illness Tyrone presents for psychiatric admission for worsening depression and SI with plan of hanging himself or cutting himself in the context of multiple psychosocial stressors including his mother's ongoing decompensation from Laura's disease, being alone a lot over Thanksgiving break and loneliness/low self-worth. He is know to me from his previous admission in August 2022 following a suicide attempt. He presented to the ED after reporting worsening depression and SI during his [facility] appointment. Depression and SI has been intensifying over the last three weeks and these have intensified to the point of thinking of hanging himself or cutting himself. He finds when he's by himself he doesn't want to do anything and over Thanksgiving break "those not so great thoughts were coming back". He feels he's "not happy with myself" and has suicidal thoughts. Endorses significant anhedonia, decreased motivation/difficulty getting out of bed, missed classes this week, not wanting to respond to friend's texts, very low energy, and sleeping more. Anxiety is still there especially regarding "what people will think of me if I go back to my activities". He went to a bar while he was home on Sunday and was about his prior attempt by peers which re- enforced a lot of his concerns about people talking about him and thinking about him in the context of his prior attempt. Dr. Carpenter increased his sertraline to 100mg in mid-August, he's not sure if this is helping. Past Psychiatric History Current Psychiatric Diagnosis: MDD Outpatient Services: Tasia at [facility] for therapy which he finds helpful, Dr. Carpenter for psychiatry at [facility] Previous Psych Admissions: [facility] Aug 2022 Do You Have Access To A Gun?: No History of Previous Suicide Attempt: Yes Describe Attempts in the Past: went [place] and cut himself in Aug 2022 was missing for ~24hrs Past Medication Trials: none Past Head Trauma/Neuro History History of Concussion/Seizure: No Allergies Allergy/AdvReac Type Severity Reaction Status Date / Time cat dander Allergy Verified 08/21/22 15:05 grass pollen Allergy Verified 08/21/22 15:05 Home Medications Medication Instructions Recorded Confirmed Type sertraline 50 mg tablet 100 mg PO QAM 10/19/22 10/19/22 History Family History Family History of: Other Mood Disorders and Alcoholism/Drug Abuse Alcohol History Hx of Alcohol Use Over the Past 12 Months: Yes (occassional - last use prior to August) AUDIT Total Score: 13 not often, had a beer on and 1-2 beers on Sunday Smoking Use Have You Smoked or Used Tobacco Products in the Last 30 Days: Yes Smoking Status: Former smoker (sometimes at parties but no recent use) Substance History Hx of Prescription Med Misuse Over the Past 12 Months: No Hx of Over the Counter Med Misuse Over the Past 12 Months: No Hx of Inhalent Misuse Over the Past 12 Months: No Hx of Organic Substance Use Over the Past 12 Months: Yes (Marijuana - occassional) Hx of Illegal Substances/Street Drug Use Over Past 12 Months: No Problems as a Result of Past Substance Use: None Identified Cannabis use once or twice over break, helps him relax Personal History Living Arrangements: Apartment Highest Grade Completed: Some College Employment Status: Student Marital Status: Single Beliefs That Will Affect Care: None Current Legal Problems: No Hx Legal Problems: No Hx Traumatic Life Events: Yes Patient History Medical History Insomnia No pertinent family history Suicide attempt by cutting of wrist Surgical History No pertinent past surgical history Social History Smoking Status: Former smoker (sometimes at parties but no recent use) Preferred Language: Nepali Communication Ability: Effective Marketing Communications Coordinator Required: No Beliefs That Will Affect Care: None Feels Safe at Home: Yes Assistive Devices: None Review of Systems Review of Systems: All systems reviewed & are unremarkable except as noted in HPI & below Physical Exam Psychiatric: Orientation: alert and oriented x 3 Apperance: appropriately dressed and appropriately groomed Eye Contact: + poor eye contact Motor Behavior: no abnormal motor movements Speech: + abnormal rate/rhythm/volume of speech (slow, softer, latent) Affect: + depressed affect and + flat affect Mood: + depressed mood and + anxious mood Thought Process: goal directed thought process and + concrete thought process Thought Content: reality based without delusions Suicidal Thoughts: denies suicidal plan (none for here in the hospital) and denies suicidal intent; + reports suicidal thoughts Homicidal Thoughts: denies homicidal thoughts Hallucinations: no auditory hallucinations and no visual hallucinations Cognition: recent memory grossly intact, remote memory grossly intact, attention grossly intact and language grossly intact Estimated Intelligence: consistent with education level Insight: + limited insight Judgement: + fair judgement Vital Signs (Past 24 Hours): Last Vital Signs Temp 36.3 C L 10/19/22 06:45 Pulse 89 10/19/22 06:46 Resp 16 10/19/22 06:45 BP 120/81 10/19/22 06:46 Pulse Ox 98 10/18/22 18:22 O2 Del Method 10/18/22 18:22 Exam Statement: A physical exam was performed in the ED by Dr. Cbaral for the purposes of medical clearance. I accept that physical as correct and adequate for the purposes of the inpatient physical exam. Results & Data ([facility]) Laboratory Results Laboratory Results - last 24 hr 10/18/22 10/18/22 10/18/22 15:27 15:27 15:27 WBC 4.07 L RBC 4.66 Hgb 14.5 Hct 40.5 MCV 86.9 MCH 31.1 MCHC 35.8 RDW Std Deviation 38.5 RDW Coeff of Lucas 12.2 Plt Count 247 MPV 10.5 Immature Gran % (Auto) 0.2 Neut % (Auto) 64.7 Lymph % (Auto) 21.4 [place] % (Auto) 12.0 Eos % (Auto) 1.0 Baso % (Auto) 0.7 Neut # (Auto) 2.63 Lymph # (Auto) 0.87 L [place] # (Auto) 0.49 Eos # (Auto) 0.04 Baso # (Auto) 0.03 Immature Gran # (Auto) 0.01 Sodium 138 Potassium 3.8 Chloride 104 Carbon Dioxide 24 Anion Gap 10 BUN 19 Creatinine 0.77 Est Cr Clr Drug Dosing 180.8 Est GFR ( Amer) > 150.0 Est GFR (Non-Af Amer) 129.7 BUN/Creatinine Ratio 24.7 H Glucose 91 Calcium 10.2 H Total Bilirubin 1.0 AST 14 ALT 29 Alkaline Phosphatase 95 Total Protein 7.9 Albumin 5.0 Globulin 2.9 Albumin/Globulin Ratio 1.7 TSH 1.942 Urine Color Urine Appearance Urine pH Ur Specific [place] Urine Protein Urine Glucose (UA) Urine Ketones Urine Blood Urine Nitrite Urine Bilirubin Urine Urobilinogen Ur Leukocyte Esterase Salicylates Urine Opiates Screen Ur Methadone, Qual Acetaminophen Urine Barbiturates Ur Phencyclidine (PCP) U Amphetamin/Meth Scrn MDMA (Ecstasy) Screen U Benzodiazepines Scrn Ur Cocaine Metabolite U Marijuana (THC) Screen U Marijuana THC Carboxy Drug Screen Comment Ethyl Alcohol mg/dL SARS-CoV-2, RNA, NAAT 10/18/22 10/18/22 10/18/22 15:27 15:27 15:27 WBC RBC Hgb Hct MCV MCH MCHC RDW Std Deviation RDW Coeff of Lucas Plt Count MPV Immature Gran % (Auto) Neut % (Auto) Lymph % (Auto) [place] % (Auto) Eos % (Auto) Baso % (Auto) Neut # (Auto) Lymph # (Auto) [place] # (Auto) Eos # (Auto) Baso # (Auto) Immature Gran # (Auto) Sodium Potassium Chloride Carbon Dioxide Anion Gap BUN Creatinine Est Cr Clr Drug Dosing Est GFR ( Amer) Est GFR (Non-Af Amer) BUN/Creatinine Ratio Glucose Calcium Total Bilirubin AST ALT Alkaline Phosphatase Total Protein Albumin Globulin Albumin/Globulin Ratio TSH Urine Color Urine Appearance Urine pH Ur Specific [place] Urine Protein Urine Glucose (UA) Urine Ketones Urine Blood Urine Nitrite Urine Bilirubin Urine Urobilinogen Ur Leukocyte Esterase Salicylates < 3.0 L Urine Opiates Screen Ur Methadone, Qual Acetaminophen < 3 L Urine Barbiturates Ur Phencyclidine (PCP) U Amphetamin/Meth Scrn MDMA (Ecstasy) Screen U Benzodiazepines Scrn Ur Cocaine Metabolite U Marijuana (THC) Screen U Marijuana THC Carboxy Drug Screen Comment Ethyl Alcohol mg/dL < 10.0 SARS-CoV-2, RNA, NAAT NEGATIVE 10/18/22 10/18/22 10/18/22 16:27 16:27 16:27 WBC RBC Hgb Hct MCV MCH MCHC RDW Std Deviation RDW Coeff of Lucas Plt Count MPV Immature Gran % (Auto) Neut % (Auto) Lymph % (Auto) [place] % (Auto) Eos % (Auto) Baso % (Auto) Neut # (Auto) Lymph # (Auto) [place] # (Auto) Eos # (Auto) Baso # (Auto) Immature Gran # (Auto) Sodium Potassium Chloride Carbon Dioxide Anion Gap BUN Creatinine Est Cr Clr Drug Dosing Est GFR ( Amer) Est GFR (Non-Af Amer) BUN/Creatinine Ratio Glucose Calcium Total Bilirubin AST ALT Alkaline Phosphatase Total Protein Albumin Globulin Albumin/Globulin Ratio TSH Urine Color Yellow Urine Appearance Clear Urine pH 7.5 Ur Specific [place] 1.020 Urine Protein Negative Urine Glucose (UA) Negative Urine Ketones Negative Urine Blood Negative Urine Nitrite Negative Urine Bilirubin Negative Urine Urobilinogen Negative Ur Leukocyte Esterase Negative Salicylates Urine Opiates Screen Neg Ur Methadone, Qual Neg Acetaminophen Urine Barbiturates Neg Ur Phencyclidine (PCP) Neg U Amphetamin/Meth Scrn Neg MDMA (Ecstasy) Screen Neg U Benzodiazepines Scrn Neg Ur Cocaine Metabolite Neg U Marijuana (THC) Screen Pos H U Marijuana THC Carboxy Pending Drug Screen Comment Pending Ethyl Alcohol mg/dL SARS-CoV-2, RNA, NAAT Current Inpatient Medications Current Inpatient Medications: Current Inpatient Medications Acetaminophen (Acetaminophen 325 Mg Tab) 650 mg PO Q4H PRN PRN Reason: Headache or Minor Fever Stop: 11/17/22 18:18 Al Hydrox/Mg Hydrox/Simethicone (Aluminum/Magnesium Susp 30 Ml Udc) 30 ml PO Q4H PRN PRN Reason: GI Upset Stop: 11/17/22 18:18 Bismuth Subsalicylate (Bismuth Subsalicylate Liqd 236 Ml) 15 ml PO PRN PRN PRN Reason: Loose Stool Stop: 11/17/22 18:18 Hydroxyzine HCl (Hydroxyzine Hcl 25 Mg Tab) 50 mg PO HSZ PRN PRN Reason: Insomnia Stop: 11/17/22 18:18 Hydroxyzine HCl (Hydroxyzine Hcl 25 Mg Tab) 25 mg PO Q4H PRN PRN Reason: Anxiety Stop: 11/17/22 18:18 Magnesium Hydroxide (Magnesium Hydroxide Susp 30 Ml Udc) 30 ml PO DAILY PRN PRN Reason: Constipation Stop: 11/17/22 18:18 Sertraline HCl (Sertraline Hcl 100 Mg Tablet) 100 mg PO QAM PATRICE Stop: 11/18/22 08:59 Sodium Chloride (Sodium Chloride 0.65% Na Soln 45 Ml ([place])) 1 - 2 sprays NA PRN PRN PRN Reason: Nasal Dryness/Congestion Stop: 11/17/22 18:18
[2022-10-19] MEDS: SERTRALINE HCL 100 MG TABLET PO SCH (09:03)
[2022-10-19] MEDS: buPROPion XL 150 MG TABCR PO SCH (12:57)
[2022-10-20] MEDS: SERTRALINE HCL 100 MG TABLET PO SCH (08:46)
[2022-10-20] MEDS: buPROPion XL 150 MG TABCR PO SCH (08:46)
--- NOTE | 2022-10-20 16:43 | Psychiatric Progress Note ---
Date of Service October 20, 2022 Impression / Recommendations Karla Steele is a 22 yo and [employer] student presenting for worsening depression with SI with plans following a serious attempt in August and intensifying depression now interfering with his class attendance and engagement with peers. Diagnostically consistent with major depressive disorder, severe and social anxiety related to media coverage following his suicide attempt in August 2022. The patient is deemed unstable and requires psychiatric hospitalization for diagnostic clarification, safety and stabilization, medication management and development of further coping skills. 10/20/22: Ongoing depression with SI. Tolerating initiation of Wellbutrin XL for depression augmentation. (1) Recurrent severe major depressive disorder with anxiety: Plan 10/20/22: Continue with current medications and tx plan. 10/19/22: The patient was admitted to the [facility] ([facility] unit) on q15 min checks (behavioral with suicide precautions) for safety. The patient will participate in group, recreational, and milieu therapies and will be offered additional individual and family sessions as clinically appropriate. -Continue sertraline 100mg qd -Start Wellbutrin XL 150mg qd Inventory Assets Strengths: supportive relationships, willing to get treatment, outpatient providers, re silient Needs: safety and stabilization, medication adjustment, additional coping skills, increased outpatient services Suicide Risk Level Suicide Risk Level: High-Moderate (q15 min suicide checks) (High-Moderate due to severe depression with SI with plan prior to admission but feels safe in the hospital, able to safety contract and agrees to let nursing/staff know should they develop plan, intent or feel unable to remain safe. 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 Chief Complaint "I have more energy today, I'm able to get up more easily". Review of Systems Sleep Information Total Hours of Sleep: 7.25 Meal Information Percent Meal Consumed - Breakfast: 100 Percent Meal Consumed - Lunch: 100 Percent Meal Consumed - Dinner: 100 Subjective Subjective Patient was seen & assessed and interval progress reviewed with treatment team nursing and social work. Affect slightly brighter today. Likes the Wellbutrin, feels it is helping "a little bit" and noticing some improvement in energy level and motivation already. Denies any increase in anxiety. Some difficulty falling asleep last night. Appetite stable. Processed that he struggles with not wanting to burden his family by telling them when he feels really depressed but has been able to be fully forthcoming with his outpatient therapist. Ongoing SI but he feels it is "lessening for sure". Physical Exam Psychiatric Orientation: alert and oriented x 3 Apperance: appropriately dressed and appropriately groomed Eye Contact: good eye contact Motor Behavior: no abnormal motor movements Speech: normal rate/rhythm/volume of speech Affect: + depressed affect and + anxious affect Mood: + depressed mood and + anxious mood Thought Process: goal directed thought process Thought Content: reality based without delusions Suicidal Thoughts: denies suicidal plan (none for here in the hospital) and denies suicidal intent; + reports suicidal thoughts Homicidal Thoughts: denies homicidal thoughts Hallucinations: no auditory hallucinations and no visual hallucinations Cognition: recent memory grossly intact, remote memory grossly intact, attention grossly intact and language grossly intact Estimated Intelligence: consistent with education level Insight: + limited insight Judgement: + fair judgement Vital Signs (Past 24 Hours) Last Vital Signs Temp 37.0 C 10/20/22 06:00 Pulse 85 10/20/22 06:56 Resp 16 10/20/22 06:00 BP 132/88 10/20/22 06:56 Pulse Ox 95 10/20/22 06:00 O2 Del Method 10/20/22 06:00 Results & Data ([facility]) Current Inpatient Medications Current Inpatient Medications: Current Inpatient Medications Acetaminophen (Acetaminophen 325 Mg Tab) 650 mg PO Q4H PRN PRN Reason: Headache or Minor Fever Stop: 11/17/22 18:18 Al Hydrox/Mg Hydrox/Simethicone (Aluminum/Magnesium Susp 30 Ml Udc) 30 ml PO Q4H PRN PRN Reason: GI Upset Stop: 11/17/22 18:18 Bismuth Subsalicylate (Bismuth Subsalicylate Liqd 236 Ml) 15 ml PO PRN PRN PRN Reason: Loose Stool Stop: 11/17/22 18:18 Bupropion HCl (Bupropion Xl 150 Mg Tabcr) 150 mg PO QAM PATRICE Stop: 11/18/22 10:14 Last Admin: 10/20/22 08:46 Dose: 150 mg Hydroxyzine HCl (Hydroxyzine Hcl 25 Mg Tab) 50 mg PO HSZ PRN PRN Reason: Insomnia Stop: 11/17/22 18:18 Hydroxyzine HCl (Hydroxyzine Hcl 25 Mg Tab) 25 mg PO Q4H PRN PRN Reason: Anxiety Stop: 11/17/22 18:18 Magnesium Hydroxide (Magnesium Hydroxide Susp 30 Ml Udc) 30 ml PO DAILY PRN PRN Reason: Constipation Stop: 11/17/22 18:18 Sertraline HCl (Sertraline Hcl 100 Mg Tablet) 100 mg PO QAM PATRICE Stop: 11/18/22 08:59 Last Admin: 10/20/22 08:46 Dose: 100 mg Sodium Chloride (Sodium Chloride 0.65% Na Soln 45 Ml ([place])) 1 - 2 sprays NA PRN PRN PRN Reason: Nasal Dryness/Congestion Stop: 11/17/22 18:18 Mental Health & Subst Abuse Tx Psychiatrist Name of Psychiatrist: ANNE Carpenter Psychiatrist's Psychiatric Appointment Comment: [facility], [facility] [id number], [place] [address] Therapist Name of Therapist: ANNE Dozier Therapist's Therapy Appointment Comment: [facility], [facility] [id number], [place] [address] Registered Dental Hygienist Name of Registered Dental Hygienist: None Post Discharge Appointments Primary Care Physician Name Of Family Doctor: [facility] Primary Care Time of Appointment with PCP: Please follow up as needed Provider Appointment Comment: [facility] [place] [id number]
[2022-10-21 03:37] LABS: Marijuana Quant, GCMS Urine 275 ng/mL (<5)
[2022-10-21 06:43] VITALS: O2SAT 96
[2022-10-21] MEDS: buPROPion XL 150 MG TABCR PO SCH (09:26)
[2022-10-21] MEDS: SERTRALINE HCL 100 MG TABLET PO SCH (09:26)
--- NOTE | 2022-10-21 14:03 | Psychiatric Progress Note ---
Date of Service October 21, 2022 Impression / Recommendations Karla Steele is a 22 yo and [employer] student presenting for worsening depression with SI with plans following a serious attempt in August and intensifying depression now interfering with his class attendance and engagement with peers. Diagnostically consistent with major depressive disorder, severe and social anxiety related to media coverage following his suicide attempt in August 2022. 10/21/22: improving, remains at significant risk of decompensation outside of the hospital. (1) Recurrent severe major depressive disorder with anxiety: Plan 10/21/22: continue current meds and tx plan. 10/20/22: Continue with current medications and tx plan. 10/19/22: The patient was admitted to the [facility] ([facility] unit) on q15 min checks (behavioral with suicide precautions) for safety. The patient will participate in group, recreational, and milieu therapies and will be offered additional individual and family sessions as clinically appropriate. -Continue sertraline 100mg qd -Start Wellbutrin XL 150mg qd Inventory Assets Strengths: supportive relationships, willing to get treatment, outpatient providers, resilient Needs: safety and stabilization, medication adjustment, additional coping skills, increased outpatient services Suicide Risk Level Suicide Risk Level: High-Moderate (q15 min suicide checks) Risk Factors Assessment Male: Yes : Yes Do You Have Access To A Gun?: No Health Problems: No Mental Health Diagnoses: Yes Substance Use Disorders: No Previous Attempt: Yes Previous Psychiatric Hospitalization: Yes Protective Factors Assessment 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 Chief Complaint "I feel a little better each day". Review of Systems Sleep Information Total Hours of Sleep: 6.25 Meal Information Percent Meal Consumed - Breakfast: 100 Percent Meal Consumed - Lunch: 100 Percent Meal Consumed - Dinner: 90 Subjective Subjective Patient was seen & assessed and interval progress reviewed with nursing and social work. discussed his being triggered by time at home. rated mood 5 1/2 last pm. More optimistic. Denies SE of Wellbutrin. Physical Exam Psychiatric Orientation: alert and oriented x 3 Apperance: appropriately dressed and appropriately groomed Eye Contact: good eye contact Motor Behavior: no abnormal motor movements Speech: normal rate/rhythm/volume of speech Affect: + depressed affect Mood: + depressed mood Thought Process: goal directed thought process and + concrete thought process Thought Content: reality based without delusions Suicidal Thoughts: denies suicidal thoughts, denies suicidal plan (none for here in the hospital) and denies suicidal intent Homicidal Thoughts: denies homicidal thoughts Hallucinations: no auditory hallucinations and no visual hallucinations Cognition: recent memory grossly intact, remote memory grossly intact, attention grossly intact and language grossly intact Estimated Intelligence: consistent with education level Insight: + fair insight Vital Signs (Past 24 Hours) Last Vital Signs Temp 36.6 C 10/21/22 06:00 Pulse 82 10/21/22 06:42 Resp 18 10/21/22 06:00 BP 137/78 10/21/22 06:42 Pulse Ox 96 10/21/22 06:00 O2 Del Method 10/21/22 06:00 Results & Data ([facility]) Laboratory Results Laboratory Results - last 24 hr 10/18/22 16:27 U Marijuana THC Carboxy 275 H Drug Screen Comment SEE NOTE Current Inpatient Medications Current Inpatient Medications: Current Inpatient Medications Acetaminophen (Acetaminophen 325 Mg Tab) 650 mg PO Q4H PRN PRN Reason: Headache or Minor Fever Stop: 11/17/22 18:18 Al Hydrox/Mg Hydrox/Simethicone (Aluminum/Magnesium Susp 30 Ml Udc) 30 ml PO Q4H PRN PRN Reason: GI Upset Stop: 11/17/22 18:18 Bismuth Subsalicylate (Bismuth Subsalicylate Liqd 236 Ml) 15 ml PO PRN PRN PRN Reason: Loose Stool Stop: 11/17/22 18:18 Bupropion HCl (Bupropion Xl 150 Mg Tabcr) 150 mg PO QAM PATRICE Stop: 11/18/22 10:14 Last Admin: 10/21/22 09:26 Dose: 150 mg Hydroxyzine HCl (Hydroxyzine Hcl 25 Mg Tab) 50 mg PO HSZ PRN PRN Reason: Insomnia Stop: 11/17/22 18:18 Hydroxyzine HCl (Hydroxyzine Hcl 25 Mg Tab) 25 mg PO Q4H PRN PRN Reason: Anxiety Stop: 11/17/22 18:18 Magnesium Hydroxide (Magnesium Hydroxide Susp 30 Ml Udc) 30 ml PO DAILY PRN PRN Reason: Constipation Stop: 11/17/22 18:18 Sertraline HCl (Sertraline Hcl 100 Mg Tablet) 100 mg PO QAM PATRICE Stop: 11/18/22 08:59 Last Admin: 10/21/22 09:26 Dose: 100 mg Sodium Chloride (Sodium Chloride 0.65% Na Soln 45 Ml ([place])) 1 - 2 sprays NA PRN PRN PRN Reason: Nasal Dryness/Congestion Stop: 11/17/22 18:18 Mental Health & Subst Abuse Tx Psychiatrist Name of Psychiatrist: ANNE Carpenter Psychiatrist's Psychiatric Appointment Comment: [facility], [facility] [address], [place] [address] Therapist Name of Therapist: ANNE Dozier Therapist's Therapy Appointment Comment: [facility] [place] [address], [place] [address] Info Specialist Name of Info Specialist: None Post Discharge Appointments Primary Care Physician Name Of Family Doctor: [facility] Primary Care Time of Appointment with PCP: Please follow up as needed Provider Appointment Comment: [facility], [place] [address]
[2022-10-22] MEDS: SERTRALINE HCL 100 MG TABLET PO SCH (09:03)
[2022-10-22] MEDS: buPROPion XL 150 MG TABCR PO SCH (09:03)
--- NOTE | 2022-10-22 13:30 | Psychiatric Progress Note ---
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 Diagnostically consistent with major depressive disorder, severe and social anxiety related to media coverage following his suicide attempt in August 2022. 10/22/22: more anxious today, remains at significant risk of decompensation outside of the hospital. (1) Recurrent severe major depressive disorder with anxiety: Plan 10/22/22: continue current meds and tx plan. Monitor anxiety. 10/21/22: continue current meds and tx plan. 10/20/22: Continue with current medications and tx plan. 10/19/22: The patient was admitted to the [facility] ([facility] unit) on q15 min checks (behavioral with suicide precautions) for safety. The patient will participate in group, recreational, and milieu therapies and will be offered additional individual and family sessions as clinically appropriate. -Continue sertraline 100mg qd -Start Wellbutrin XL 150mg qd Inventory Assets Strengths: supportive relationships, willing to get treatment, outpatient providers, resilient Needs: safety and stabilization, medication adjustment, additional coping skills, increased outpatient services Suicide Risk Level Suicide Risk Level: Moderate (q15 min suicide checks) Risk Factors Assessment Male: Yes : Yes Do You Have Access To A Gun?: No Health Problems: No Mental Health Diagnoses: Yes Substance Use Disorders: No Previous Attempt: Yes Previous Psychiatric Hospitalization: Yes Protective Factors Assessment 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 Chief Complaint "I was overwhelmed with all of the decisions I have to make". Review of Systems Sleep Information Total Hours of Sleep: 5.5 Meal Information Percent Meal Consumed - Breakfast: 100 Percent Meal Consumed - Lunch: 100 Percent Meal Consumed - Dinner: 100 Subjective Subjective Patient was seen & assessed and interval progress reviewed with nursing and soc ial work. anxious in group this am about options for finishing class, how to structure time over break. Feels a burden to his sister now since back in hospital. Physical Exam Psychiatric Orientation: alert and oriented x 3 Apperance: appropriately dressed and appropriately groomed Eye Contact: good eye contact Motor Behavior: no abnormal motor movements Speech: normal rate/rhythm/volume of speech Affect: + anxious affect Mood: + anxious mood Thought Process: + concrete thought process Thought Content: reality based without delusions Suicidal Thoughts: denies suicidal thoughts, denies suicidal plan (none for here in the hospital) and denies suicidal intent Homicidal Thoughts: denies homicidal thoughts Hallucinations: no auditory hallucinations and no visual hallucinations Cognition: attention grossly intact Vital Signs (Past 24 Hours) Last Vital Signs Temp 36.8 C 10/22/22 06:37 Pulse 99 H 10/22/22 06:37 Resp 16 10/22/22 06:37 BP 127/63 10/22/22 06:37 Pulse Ox 96 10/21/22 06:00 O2 Del Method 10/21/22 06:00 Results & Data ([facility]) Current Inpatient Medications Current Inpatient Medications: Current Inpatient Medications Acetaminophen (Acetaminophen 325 Mg Tab) 650 mg PO Q4H PRN PRN Reason: Headache or Minor Fever Stop: 11/17/22 18:18 Al Hydrox/Mg Hydrox/Simethicone (Aluminum/Magnesium Susp 30 Ml Udc) 30 ml PO Q4H PRN PRN Reason: GI Upset Stop: 11/17/22 18:18 Bismuth Subsalicylate (Bismuth Subsalicylate Liqd 236 Ml) 15 ml PO PRN PRN PRN Reason: Loose Stool Stop: 11/17/22 18:18 Bupropion HCl (Bupropion Xl 150 Mg Tabcr) 150 mg PO QAM PATRICE Stop: 11/18/22 10:14 Last Admin: 10/22/22 09:03 Dose: 150 mg Hydroxyzine HCl (Hydroxyzine Hcl 25 Mg Tab) 50 mg PO HSZ PRN PRN Reason: Insomnia Stop: 11/17/22 18:18 Hydroxyzine HCl (Hydroxyzine Hcl 25 Mg Tab) 25 mg PO Q4H PRN PRN Reason: Anxiety Stop: 11/17/22 18:18 Magnesium Hydroxide (Magnesium Hydroxide Susp 30 Ml Udc) 30 ml PO DAILY PRN PRN Reason: Constipation Stop: 11/17/22 18:18 Sertraline HCl (Sertraline Hcl 100 Mg Tablet) 100 mg PO QAM PATRICE Stop: 11/18/22 08:59 Last Admin: 10/22/22 09:03 Dose: 100 mg Sodium Chloride (Sodium Chloride 0.65% Na Soln 45 Ml ([place])) 1 - 2 sprays NA PRN PRN PRN Reason: Nasal Dryness/Congestion Stop: 11/17/22 18:18 Mental Health & Subst Abuse Tx Psychiatrist Name of Psychiatrist: ANNE Carpenter Psychiatrist's Psychiatric Appointment Comment: [facility], [facility][note 3] [id number], [place] [address] Therapist Name of Therapist: ANNE Dozier Therapist's Therapy Appointment Comment: [facility], [facility][note 3] [id number], [place] [address] Operator Coating Furnace Name of Operator Coating Furnace: None Post Discharge Appointments Primary Care Physician Name Of Family Doctor: [facility] Primary Care Time of Appointment with PCP: Please follow up as needed Provider Appointment Comment: [facility], [place] [address]
[2022-10-23] MEDS: SERTRALINE HCL 100 MG TABLET PO SCH (08:43)
[2022-10-23] MEDS: buPROPion XL 150 MG TABCR PO SCH (08:43)
--- NOTE | 2022-10-23 12:23 | Psychiatric Progress Note ---
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 Diagnostically consistent with major depressive disorder, severe and social anxiety related to media coverage following his suicide attempt in August 2022. 10/23/22: improving in structured support of unit, breakthrough anxiety (1) Recurrent severe major depressive disorder with anxiety: Plan 10/23/22: needs family meeting 10/22/22: continue current meds and tx plan. Monitor anxiety. 10/21/22: continue current meds and tx plan. 10/20/22: Continue with current medications and tx plan. 10/19/22: The patient was admitted to the [facility] ([facility] mental health unit) on q15 min checks (behavioral with suicide precautions) for safety. The patient will participate in group, recreational, and milieu therapies and will be offered additional individual and family sessions as clinically appropriate. -Continue sertraline 100mg qd -Start Wellbutrin XL 150mg qd Inventory Assets Strengths: supportive relationships, willing to get treatment, outpatient providers, resilient Needs: safety and stabilization, medication adjustment, additional coping skills, increased outpatient services Suicide Risk Level Suicide Risk Level: Moderate (q15 min suicide checks) Risk Factors Assessment Male: Yes : Yes Do You Have Access To A Gun?: No Health Problems: No Mental Health Diagnoses: Yes Substance Use Disorders: No Previous Attempt: Yes Previous Psychiatric Hospitalization: Yes Protective Factors Assessment 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 Chief Complaint "I was 7 and anxious last night but feeling better today". Review of Systems Sleep Information Total Hours of Sleep: 5.5 Meal Information Percent Meal Consumed - Breakfast: 100 Percent Meal Consumed - Lunch: 100 Percent Meal Consumed - Dinner: 100 Subjective Subjective Patient was seen & assessed and interval progress reviewed with treatment team. Energy is improved. Still anxious about making decisions that would upset family/affect others. Undecided now re: staying for his final. Physical Exam Psychiatric Orientation: alert and oriented x 3 Apperance: appropriately dressed and appropriately groomed Eye Contact: good eye contact Motor Behavior: no abnormal motor movements Speech: normal rate/rhythm/volume of speech Affect: euthymic affect Mood: + anxious mood Thought Process: goal directed thought process Thought Content: reality based without delusions Suicidal Thoughts: denies suicidal thoughts Homicidal Thoughts: denies homicidal thoughts Hallucinations: no auditory hallucinations and no visual hallucinations Cognition: attention grossly intact and language grossly intact Estimated Intelligence: consistent with education level Vital Signs (Past 24 Hours) Last Vital Signs Temp 36.5 C 10/23/22 06:45 Pulse 83 10/23/22 06:46 Resp 16 10/23/22 06:45 BP 129/66 10/23/22 06:46 Pulse Ox 96 10/21/22 06:00 O2 Del Method 10/21/22 06:00 Results & Data ([facility]) Current Inpatient Medications Current Inpatient Medications: Current Inpatient Medications Acetaminophen (Acetaminophen 325 Mg Tab) 650 mg PO Q4H PRN PRN Reason: Headache or Minor Fever Stop: 11/17/22 18:18 Al Hydrox/Mg Hydrox/Simethicone (Aluminum/Magnesium Susp 30 Ml Udc) 30 ml PO Q4H PRN PRN Reason: GI Upset Stop: 11/17/22 18:18 Bismuth Subsalicylate (Bismuth Subsalicylate Liqd 236 Ml) 15 ml PO PRN PRN PRN Reason: Loose Stool Stop: 11/17/22 18:18 Bupropion HCl (Bupropion Xl 150 Mg Tabcr) 150 mg PO QAM PATRICE Stop: 11/18/22 10:14 Last Admin: 10/23/22 08:43 Dose: 150 mg Hydroxyzine HCl (Hydroxyzine Hcl 25 Mg Tab) 50 mg PO HSZ PRN PRN Reason: Insomnia Stop: 11/17/22 18:18 Hydroxyzine HCl (Hydroxyzine Hcl 25 Mg Tab) 25 mg PO Q4H PRN PRN Reason: Anxiety Stop: 11/17/22 18:18 Magnesium Hydroxide (Magnesium Hydroxide Susp 30 Ml Udc) 30 ml PO DAILY PRN PRN Reason: Constipation Stop: 11/17/22 18:18 Sertraline HCl (Sertraline Hcl 100 Mg Tablet) 100 mg PO QAM PATRICE Stop: 11/18/22 08:59 Last Admin: 10/23/22 08:43 Dose: 100 mg Sodium Chloride (Sodium Chloride 0.65% Na Soln 45 Ml ([place])) 1 - 2 sprays NA PRN PRN PRN Reason: Nasal Dryness/Congestion Stop: 11/17/22 18:18 Mental Health & Subst Abuse Tx Psychiatrist Name of Psychiatrist: ANNE Carpenter Psychiatrist's Psychiatric Appointment Comment: [facility], [facility] [address], [place] [address] Therapist Name of Therapist: ANNE Dozier Therapist's Therapy Appointment Comment: [facility], [facility] [address], [place] [address] Molding Engineer Name of Molding Engineer: None Post Discharge Appointments Primary Care Physician Name Of Family Doctor: [facility] Primary Care Time of Appointment with PCP: Please follow up as needed Provider Appointment Comment: [facility] [place] [address]
[2022-10-24] MEDS: buPROPion XL 150 MG TABCR PO SCH (09:08)
[2022-10-24] MEDS: SERTRALINE HCL 100 MG TABLET PO SCH (09:08)
--- NOTE | 2022-10-24 15:34 | Psychiatric Progress Note ---
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 Diagnostically consistent with major depressive disorder, severe and social anxiety related to media coverage following his suicide attempt in August 2022. 10/24/22: improving (1) Recurrent severe major depressive disorder with anxiety: Plan 10/24/22: family meeting today, safety planning 10/23/22: needs family meeting 10/22/22: continue current meds and tx plan. Monitor anxiety. 10/21/22: continue current meds and tx plan. 10/20/22: Continue with current medications and tx plan. 10/19/22: The patient was admitted to the [facility] ([facility] unit) on q15 min checks (behavioral with suicide precautions) for safety. The patient will participate in group, recreational, and milieu therapies and will be offered additional individual and family sessions as clinically appropriate. -Continue sertraline 100mg qd -Start Wellbutrin XL 150mg qd Inventory Assets Strengths: supportive relationships, willing to get treatment, outpatient providers, resilient Needs: safety and stabilization, medication adjustment, additional coping skills, increased outpatient services Suicide Risk Level Suicide Risk Level: Moderate (q15 min suicide checks) Risk Factors Assessment Male: Yes : Yes Do You Have Access To A Gun?: No Health Problems: No Mental Health Diagnoses: Yes Substance Use Disorders: No Previous Attempt: Yes Previous Psychiatric Hospitalization: Yes Protective Factors Assessment 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 Chief Complaint "I don't like disappointing people". Review of Systems Sleep Information Total Hours of Sleep: 5.5 Meal Information Percent Meal Consumed - Breakfast: 100 Percent Meal Consumed - Lunch: 100 Percent Meal Consumed - Dinner: 100 Subjective Subjective Patient was seen & assessed and interval progress reviewed with nursing and social work. Patient has been active and engaged in the milieu. Denies medication side effects. Asked appropriate questions about duration of action/mechanism of Wellbutrin and reconsented. Physical Exam Psychiatric Orientation: alert and oriented x 3 Apperance: appropriately dressed and appropriately groomed Eye Contact: good eye contact Motor Behavior: no abnormal motor movements Speech: normal rate/rhythm/volume of speech Affect: euthymic affect Mood: + depressed mood Thought Process: goal directed thought process Thought Content: reality based without delusions Suicidal Thoughts: denies suicidal thoughts Homicidal Thoughts: denies homicidal thoughts Hallucinations: no auditory hallucinations and no visual hallucinations Cognition: attention grossly intact and language grossly intact Estimated Intelligence: consistent with education level Vital Signs (Past 24 Hours) Last Vital Signs Temp 36.9 C 10/24/22 06:51 Pulse 85 10/24/22 06:53 Resp 16 10/24/22 06:51 BP 124/77 10/24/22 06:53 Pulse Ox 96 10/21/22 06:00 O2 Del Method 10/21/22 06:00 Results & Data ([facility]) Current Inpatient Medications Current Inpatient Medications: Current Inpatient Medications Acetaminophen (Acetaminophen 325 Mg Tab) 650 mg PO Q4H PRN PRN Reason: Headache or Minor Fever Stop: 11/17/22 18:18 Al Hydrox/Mg Hydrox/Simethicone (Aluminum/Magnesium Susp 30 Ml Udc) 30 ml PO Q4H PRN PRN Reason: GI Upset Stop: 11/17/22 18:18 Bismuth Subsalicylate (Bismuth Subsalicylate Liqd 236 Ml) 15 ml PO PRN PRN PRN Reason: Loose Stool Stop: 11/17/22 18:18 Bupropion HCl (Bupropion Xl 150 Mg Tabcr) 150 mg PO QAM PATRICE Stop: 11/18/22 10:14 Last Admin: 10/24/22 09:08 Dose: 150 mg Hydroxyzine HCl (Hydroxyzine Hcl 25 Mg Tab) 50 mg PO HSZ PRN PRN Reason: Insomnia Stop: 11/17/22 18:18 Hydroxyzine HCl (Hydroxyzine Hcl 25 Mg Tab) 25 mg PO Q4H PRN PRN Reason: Anxiety Stop: 11/17/22 18:18 Magnesium Hydroxide (Magnesium Hydroxide Susp 30 Ml Udc) 30 ml PO DAILY PRN PRN Reason: Constipation Stop: 11/17/22 18:18 Sertraline HCl (Sertraline Hcl 100 Mg Tablet) 100 mg PO QAM PATRICE Stop: 11/18/22 08:59 Last Admin: 10/24/22 09:08 Dose: 100 mg Sodium Chloride (Sodium Chloride 0.65% Na Soln 45 Ml ([place])) 1 - 2 sprays NA PRN PRN PRN Reason: Nasal Dryness/Congestion Stop: 11/17/22 18:18 Mental Health & Subst Abuse Tx Psychiatrist Name of Psychiatrist: ANNE Carpenter & Miguelangel Lima Psychiatrist's Date of Appointment with Psychiatrist: 10/30/22 Time of Appointment with Psychiatrist: 11am Psychiatric Appointment Comment: [facility], [facility] [address], [place] [address] Therapist Name of Therapist: ANNE Dozier Therapist's Date of Therapist Appointment: 10/31/22 Time of Therapist Appointment: 10am Therapy Appointment Comment: [facility], [facility] [address], [place] [address] Curtain Worker Name of Curtain Worker: None Post Discharge Appointments Primary Care Physician Name Of Family Doctor: [facility] Primary Care Time of Appointment with PCP: Please follow up as needed Provider Appointment Comment: [facility] [place] [address]
[2022-10-25] MEDS: buPROPion XL 150 MG TABCR PO SCH (09:03)
[2022-10-25] MEDS: SERTRALINE HCL 100 MG TABLET PO SCH (09:04)
--- NOTE | 2022-10-25 13:47 | Psychiatric Progress Note ---
Date of Service October 25, 2022 Impression / Recommendations Karla Steele is a 22 yo and [employer] student presenting for worsening depression with SI with plans following a serious attempt in August and intensifying depression now interfering with his class attendance and engagement with peers. Diagnostically consistent with major depressive disorder, severe and social anxiety related to media coverage following his suicide attempt in August 2022. 10/25/22: future focussed Plan: continue current meds and tx plan. (1) Recurrent severe major depressive disorder with anxiety: Inventory Assets Strengths: supportive relationships, willing to get treatment, outpatient providers, resilient Needs: safety and stabilization, medication adjustment, additional coping skills, increased outpatient services Suicide Risk Level Suicide Risk Level: Moderate (q15 min suicide checks) Suicide Risk Level Comments: Risk Factors Assessment Male: Yes : Yes Do You Have Access To A Gun?: No Health Problems: No Mental Health Diagnoses: Yes Substance Use Disorders: No Previous Attempt: Yes Previous Psychiatric Hospitalization: Yes Protective Factors Assessment 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 Chief Complaint "I'm still mapping out the next few days". Review of Systems Sleep Information Total Hours of Sleep: 6 Meal Information Percent Meal Consumed - Breakfast: 95 Percent Meal Consumed - Lunch: 100 Percent Meal Consumed - Dinner: 100 Subjective Subjective Patient was seen & assessed and interval progress reviewed with treatment team. has meeting with student care an advocacy re: finals schedule. Patient plans to stay with sister and/or cousin for break. He is positive and described as genuine by staff (in comparison with last admit) Physical Exam Psychiatric Orientation: alert and oriented x 3 Apperance: appropriately dressed and appropriately groomed Eye Contact: good eye contact Motor Behavior: no abnormal motor movements Speech: normal rate/rhythm/volume of speech Affect: euthymic affect Mood: no depressed mood Thought Process: goal directed thought process Thought Content: reality based without delusions Suicidal Thoughts: denies suicidal thoughts Homicidal Thoughts: denies homicidal thoughts Hallucinations: no auditory hallucinations and no visual hallucinations Cognition: attention grossly intact and language grossly intact Vital Signs (Past 24 Hours) Last Vital Signs Temp 36.4 C L 10/25/22 06:47 Pulse 81 10/25/22 06:49 Resp 16 10/25/22 06:47 BP 119/60 10/25/22 06:49 Pulse Ox 96 10/21/22 06:00 O2 Del Method 10/21/22 06:00 Results & Data (RUST) Current Inpatient Medications Current Inpatient Medications: Current Inpatient Medications Acetaminophen (Acetaminophen 325 Mg Tab) 650 mg PO Q4H PRN PRN Reason: Headache or Minor Fever Stop: 11/17/22 18:18 Al Hydrox/Mg Hydrox/Simethicone (Aluminum/Magnesium Susp 30 Ml Udc) 30 ml PO Q4H PRN PRN Reason: GI Upset Stop: 11/17/22 18:18 Bismuth Subsalicylate (Bismuth Subsalicylate Liqd 236 Ml) 15 ml PO PRN PRN PRN Reason: Loose Stool Stop: 11/17/22 18:18 Bupropion HCl (Bupropion Xl 150 Mg Tabcr) 150 mg PO QAM PATRICE Stop: 11/18/22 10:14 Last Admin: 10/25/22 09:03 Dose: 150 mg Hydroxyzine HCl (Hydroxyzine Hcl 25 Mg Tab) 50 mg PO HSZ PRN PRN Reason: Insomnia Stop: 11/17/22 18:18 Hydroxyzine HCl (Hydroxyzine Hcl 25 Mg Tab) 25 mg PO Q4H PRN PRN Reason: Anxiety Stop: 11/17/22 18:18 Magnesium Hydroxide (Magnesium Hydroxide Susp 30 Ml Udc) 30 ml PO DAILY PRN PRN Reason: Constipation Stop: 11/17/22 18:18 Sertraline HCl (Sertraline Hcl 100 Mg Tablet) 100 mg PO QAM PATRICE Stop: 11/18/22 08:59 Last Admin: 10/25/22 09:04 Dose: 100 mg Sodium Chloride (Sodium Chloride 0.65% Na Soln 45 Ml ([place])) 1 - 2 sprays NA PRN PRN PRN Reason: Nasal Dryness/Congestion Stop: 11/17/22 18:18 Mental Health & Subst Abuse Tx Psychiatrist Name of Psychiatrist: ANNE Carpenter & Miguelangel Lima Psychiatrist's Date of Appointment with Psychiatrist: 10/30/22 Time of Appointment with Psychiatrist: 11am Psychiatric Appointment Comment: [facility], [facility] [address], [place] [address] Therapist Name of Therapist: ANNE Dozier Therapist's Date of Therapist Appointment: 10/31/22 Time of Therapist Appointment: 10am Therapy Appointment Comment: [facility], [facility] [address], [place] [address] Independent Film Maker Name of Independent Film Maker: None Post Discharge Appointments Primary Care Physician Name Of Family Doctor: [facility] Primary Care Time of Appointment with PCP: Please follow up as needed Provider Appointment Comment: [facility], [place] [address]
[2022-10-26 06:52] VITALS: BP 104/68; TEMP 97.9
--- NOTE | 2022-10-26 09:09 | Discharge Summary ---
Date of Service October 26, 2022 History of Present Illness As per Dr. Queen on admission: Cedric presents for psychiatric admission for worsening depression and SI with plan of hanging himself or cutting himself in the context of multiple psychosocial stressors including his mother's ongoing decompensation from [place]'s disease, being alone a lot over Thanksgiving break and loneliness/low self-worth. He is know to me from his previous admission in August 2022 following a suicide attempt. He presented to the ED after reporting worsening depression and SI during his [facility] appointment. Depression and SI has been intensifying over the last three weeks and these have intensified to the point of thinking of hanging himself or cutting himself. He finds when he's by himself he doesn't want to do anything and over Thanksgiving break "those not so great thoughts were coming back". He feels he's "not happy with myself" and has suicidal thoughts. Endorses significant anhedonia, decreased motivation/difficulty getting out of bed, missed classes this week, not wanting to respond to friend's texts, very low energy, and sleeping more. Anxiety is still there especially regarding "what people will think of me if I go back to my activities". He went to a bar while he was home on Sunday and was about his prior attempt by peers which re- enforced a lot of his concerns about people talking about him and thinking about him in the context of his prior attempt. Dr. Carpenter increased his sertraline to 100mg in mid-August, he's not sure if this is helping. Physical Exam Psychiatric See admission H&P and DOD assessment. Vital Signs (Past 24 Hours) Last Vital Signs Temp 36.6 C 10/26/22 06:51 Pulse 79 10/26/22 06:51 Resp 16 10/26/22 06:51 BP 104/68 10/26/22 06:51 Pulse Ox 96 10/21/22 06:00 O2 Del Method 10/21/22 06:00 Principal Diagnosis major depressive disorder Psychiatric Data See daily stay summary. In short, safety was maintained and the patient was cooperative with care. Medication changes included addition of Wellbutrin as an adjunct to Zoloft and they tolerated this well. He was described staff as more "genuine" this admission, referring to his honest representation of his symptoms and willingness to discuss family stressors. His motivation and energy improved significantly and he was future focussed with regards to finals. He did meet with Ambar Wheeler from [facility] via Zoom during his stay for additional support after discharge. A family session was held with sister and cousin and safety plan was completed prior to discharge. Day of Discharge Assessment Today the patient voices readiness for discharge. They note improvement in mood and deny thoughts to harm self or others. Thoughts remain organized and they are improved from admission. There is no evidence of psychosis. They agree to take mediations as prescribed and keep follow-up appointments. They are stable for discharge to outpatient level of care. Transition of Care Transition Of Care Record: was reviewed with the patient Advance Directives Advance Directives Information Provided: Yes Advance Directives: No Mental Health Advance Directive: No Advance Directives on File: No Living Will: No Power of Director Of Corporate Real Estate: No Advance Directives Reason:: Declines as Mental Health Visit. 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) Stable Relationships: Yes Supportive Family: Yes Good Rapport with Provider: Yes Discharge Data Lab Results 10/18/22 10/18/22 10/18/22 15:27 15:27 15:27 WBC 4.07 L RBC 4.66 Hgb 14.5 Hct 40.5 MCV 86.9 MCH 31.1 MCHC 35.8 RDW Std Deviation 38.5 RDW Coeff of Lucas 12.2 Plt Count 247 MPV 10.5 Immature Gran % (Auto) 0.2 Neut % (Auto) 64.7 Lymph % (Auto) 21.4 Luna % (Auto) 12.0 Eos % (Auto) 1.0 Baso % (Auto) 0.7 Neut # (Auto) 2.63 Lymph # (Auto) 0.87 L Luna # (Auto) 0.49 Eos # (Auto) 0.04 Baso # (Auto) 0.03 Immature Gran # (Auto) 0.01 Sodium 138 Potassium 3.8 Chloride 104 Carbon Dioxide 24 Anion Gap 10 BUN 19 Creatinine 0.77 Est Cr Clr Drug Dosing 180.8 Est GFR ( Amer) > 150.0 Est GFR (Non-Af Amer) 129.7 BUN/Creatinine Ratio 24.7 H Glucose 91 Calcium 10.2 H Total Bilirubin 1.0 AST 14 ALT 29 Alkaline Phosphatase 95 Total Protein 7.9 Albumin 5.0 Globulin 2.9 Albumin/Globulin Ratio 1.7 TSH 1.942 Urine Color Urine Appearance Urine pH Ur Specific [place] Urine Protein Urine Glucose (UA) Urine Ketones Urine Blood Urine Nitrite Urine Bilirubin Urine Urobilinogen Ur Leukocyte Esterase Salicylates Urine Opiates Screen Ur Methadone, Qual Acetaminophen Urine Barbiturates Ur Phencyclidine (PCP) U Amphetamin/Meth Scrn MDMA (Ecstasy) Screen U Benzodiazepines Scrn Ur Cocaine Metabolite U Marijuana (THC) Screen U Marijuana THC Carboxy Drug Screen Comment Ethyl Alcohol mg/dL SARS-CoV-2, RNA, NAAT 10/18/22 10/18/22 10/18/22 15:27 15:27 15:27 WBC RBC Hgb Hct MCV MCH MCHC RDW Std Deviation RDW Coeff of Lucas Plt Count MPV Immature Gran % (Auto) Neut % (Auto) Lymph % (Auto) Luna % (Auto) Eos % (Auto) Baso % (Auto) Neut # (Auto) Lymph # (Auto) Luna # (Auto) Eos # (Auto) Baso # (Auto) Immature Gran # (Auto) Sodium Potassium Chloride Carbon Dioxide Anion Gap BUN Creatinine Est Cr Clr Drug Dosing Est GFR ( Amer) Est GFR (Non-Af Amer) BUN/Creatinine Ratio Glucose Calcium Total Bilirubin AST ALT Alkaline Phosphatase Total Protein Albumin Globulin Albumin/Globulin Ratio TSH Urine Color Urine Appearance Urine pH Ur Specific [place] Urine Protein Urine Glucose (UA) Urine Ketones Urine Blood Urine Nitrite Urine Bilirubin Urine Urobilinogen Ur Leukocyte Esterase Salicylates < 3.0 L Urine Opiates Screen Ur Methadone, Qual Acetaminophen < 3 L Urine Barbiturates Ur Phencyclidine (PCP) U Amphetamin/Meth Scrn MDMA (Ecstasy) Screen U Benzodiazepines Scrn Ur Cocaine Metabolite U Marijuana (THC) Screen U Marijuana THC Carboxy Drug Screen Comment Ethyl Alcohol mg/dL < 10.0 SARS-CoV-2, RNA, NAAT NEGATIVE 10/18/22 10/18/22 10/18/22 16:27 16:27 16:27 WBC RBC Hgb Hct MCV MCH MCHC RDW Std Deviation RDW Coeff of Lucas Plt Count MPV Immature Gran % (Auto) Neut % (Auto) Lymph % (Auto) Luna % (Auto) Eos % (Auto) Baso % (Auto) Neut # (Auto) Lymph # (Auto) Luna # (Auto) Eos # (Auto) Baso # (Auto) Immature Gran # (Auto) Sodium Potassium Chloride Carbon Dioxide Anion Gap BUN Creatinine Est Cr Clr Drug Dosing Est GFR ( Amer) Est GFR (Non-Af Amer) BUN/Creatinine Ratio Glucose Calcium Total Bilirubin AST ALT Alkaline Phosphatase Total Protein Albumin Globulin Albumin/Globulin Ratio TSH Urine Color Yellow Urine Appearance Clear Urine pH 7.5 Ur Specific [place] 1.020 Urine Protein Negative Urine Glucose (UA) Negative Urine Ketones Negative Urine Blood Negative Urine Nitrite Negative Urine Bilirubin Negative Urine Urobilinogen Negative Ur Leukocyte Esterase Negative Salicylates Urine Opiates Screen Neg Ur Methadone, Qual Neg Acetaminophen Urine Barbiturates Neg Ur Phencyclidine (PCP) Neg U Amphetamin/Meth Scrn Neg MDMA (Ecstasy) Screen Neg U Benzodiazepines Scrn Neg Ur Cocaine Metabolite Neg U Marijuana (THC) Screen Pos H U Marijuana THC Carboxy 275 H Drug Screen Comment SEE NOTE Ethyl Alcohol mg/dL SARS-CoV-2, RNA, NAAT Hospital Course (1) Recurrent severe major depressive disorder with anxiety: Plan 10/24/22: family meeting today, safety planning 10/23/22: needs family meeting 10/22/22: continue current meds and tx plan. Monitor anxiety. 10/21/22: continue current meds and tx plan. 10/20/22: Continue with current medications and tx plan. 10/19/22: The patient was admitted to the [facility] on q15 min checks (behavioral with suicide precautions) for safety. The patient will participate in group, recreational, and milieu therapies and will be offered additional individual and family sessions as clinically appropriate. -Continue sertraline 100mg qd -Start Wellbutrin XL 150mg qd Mental Health & Subst Abuse Tx Psychiatrist Name of Psychiatrist: ANNE Lima Psychiatrist's Date of Appointment with Psychiatrist: 10/30/22 Time of Appointment with Psychiatrist: 11am Psychiatric Appointment Comment: [address] [id number], [place] [address] Therapist Name of Therapist: ANNE Dozier Therapist's Date of Therapist Appointment: 10/31/22 Time of Therapist Appointment: 10am Therapy Appointment Comment: [facility], [facility] [address], [place] [address] Supervisor Ride Assembly Name of Supervisor Ride Assembly: None Post Discharge Appointments Primary Care Physician Name Of Family Doctor: [facility] Primary Care Time of Appointment with PCP: Please follow up as needed Provider Appointment Comment: [place] [address] Other #1: Name of Aftercare Appointment: [facility] Phone Number of Aftercare Appointment: [phone] Date of Aftercare Appointment: 10/31/22 Time of Aftercare Appointment: 2pm Aftercare Appointment Comment: [address] Discharge Plan Discharge Items Patient Disposition: Home - Self-Care Reason For Visit: MAJOR DEPRESSIVE DISORDER Discharge Diagnosis: major depressive disorder Activity: Resume your previous activity Non-emergency contact: Primary Care Provider, Psychiatrist and Therapist Call non-emergency contact if: you have any medication questions and your symptoms worsen Follow-up/Referrals: PCP,NO [Primary Care Provider] - Diet: Regular Addtl Attending Provider Instructions: SPECIAL CARE INSTRUCTIONS: 1. Follow through with your scheduled aftercare appointments. If unable to keep an appointment, please call to reschedule. 2. Take your medication only as prescribed. Medication should not be changed or stopped without the approval of your doctor. In the event of worsening symptoms or concerns about side effects, contact your doctor immediately. 3. Utilize new healthy coping skills, anger management skills, and stress management skills learned during your hospitalization. Journal feelings and process them with a support person. Identify stressors or situations that may result in relapse, deterioration or inappropriate behaviors and develop a plan to deal with those issues. 4. If your coping skills are ineffective and you are in crisis, contact your outpatient providers for direction. If unable to reach your providers, please call the [facility] CRISIS LINE AT , go to the [facility] walk-in center at [address] [place] [address], [address], [place], or go to the closest Emergency Room. 5. Avoid alcohol and un-prescribed drugs. 6. You have been provided with the Mental Health Advance Directives Pamphlet for your review. 7. Your condition is stable for discharge to outpatient level of care, but recovery is an ongoing process. Ifthoughts to harm yourself or others return, follow the safety plan developed during your stay. Planning for a safe return home includes securing weapons. Our treatment team recommends weaponsbe removed from the home until your outpatient provider reassesses your progress. In rare cases where the items themselvescannot be removed, guns and ammunitionshould be secured separatelyand keys stored by a reliable personoutside of the home. If you were admitted on an involuntary commitment, the police or other legal authorities may be involved in this process. AFTERCARE APPOINTMENTS: * Please call your insurance company prior to your scheduled appointment to confirm your aftercare providers are covered. Take your insurance information to your appointments. WHO TO CALL AND WHEN: Medical Emergencies: For questions or emergencies related to your hospital stay, please contact the Inpatient Behavioral Health Unit at [phone]. A flakeboard line tender is on-call 11/06 for the Behavioral Health Unit for emergencies At any time you feel your situation is an emergency, you may also call 911 immediately. Pending Studies at Discharge: No Stand-Alone Forms: My [facility], Smoking Cessation Medications and DC Order Prescriptions: New bupropion HCl 150 mg Tablet Extended Release 24 Hr 150 mg PO QAM Qty: 30 0RF sertraline 100 mg Tablet 100 mg PO QAM Qty: 30 0RF Discharge Orders: Discharge Order (Routine); Ordered 10/26/22 Ordered By: Darling Bosch Admission Data Admit Date/Time: 10/18/22 17:55 Attending Provider: Darling Bosch Admit Provider: Beatrice Queen Primary Care Provider: PCP,NO Other Interventions: Discharge Summary Assessment (RN) Last Done: 10/26/22 09:52 PSY Interdisciplinary Discharge Planning Last Done: 10/26/22 09:55 Coding Level of Care Code 31240 D/C day mgmt 30 min or < Diagnoses Recurrent severe major depressive disorder with anxiety F33.2; F41.9
[2022-10-26] MEDS: buPROPion XL 150 MG TABCR PO SCH (09:37)
[2022-10-26] MEDS: SERTRALINE HCL 100 MG TABLET PO SCH (09:37)
[2022-10-26 09:54] VITALS: PULSE 76
== END 2022-10-26 10:20 | disposition home or self-care (01) | DRG 885 ==
LOC: ED 14:44 → SUATTDRO 17:55 → 3S 17:55